=== PATIENT | male | born 1940 | race Caucasian/White ===

== ENCOUNTER 2017-05-28 09:20 | Inpatient (IN) | payer MEDICARE ==
[2017-05-28] VITALS (11 sets, daily range): BP systolic 101–194; BP diastolic 56–101; PULSE 78–101; RESP 15–22; TEMP 98.2–98.6; O2SAT 95–99
[~2017-05-28] VITALS: Ht 180.3 cm; Wt 65.0 kg
[~2017-05-28 09:20] MED LIST: ADVA250A INH; AFRI0.052 EACH NARE; ASPI81CH6 CHEW; CO Q100C9 PO; INSU1INJ18 SQ; ISOS60TA PO; LISI-515 PO; META0.52 PO; METF500T PO; NEBI20 PO; PLAV75TA29 PO; PROT40TA PO; ROSU5 PO; TRAD5TAB PO; TRIA37.5 PO; VITA100064 PO; [UNRECOGNIZED DRUG - SUPPLY] TD; [UNRECOGNIZED DRUG - SUPPLY] TD
[2017-05-28] MEDS ORDERED: MORPHINE SULFATE 2 MG/ML INJ IV PUSH ONE (09:45)
[2017-05-28] MEDS ORDERED: SODIUM CHLORIDE 0.9% FLUSH 10 ML FLUSH IVF PRN (09:45)
--- NOTE | 2017-05-28 09:52 | RADRPT ---
EXAM DATE/TIME: 05/28/2017 09:39 [place] COMPARISON: No previous studies available for comparison. INDICATIONS : Chest pain. MEDICAL HISTORY : Chronic obstructive pulmonary disease. SURGICAL HISTORY : stents in legs and left arm ENCOUNTER: Initial ACUITY: 2 days PAIN SCORE: 8/10 LOCATION: Bilateral chest FINDINGS: A single view of the chest demonstrates the lungs to be symmetrically aerated without evidence of mas s, infiltrate or effusion. The cardiomediastinal contours are unremarkable. Osseous structures are intact. The patient is status post median sternotomy for bypass grafting procedure. Mild atherosclero tic changes are present in the aorta. There are overlying electrocardiogram leads present. CONCLUSION: No acute disease. Ignacio Julien MD on May 28, 2017 at 9:47 Board Certified Radiologist. This report was verified electronically.
[2017-05-28 10:06] LABS: AUTOMATED NEUTROPHIL # 7.7 TH/MM3 (1.8-7.7); BASOPHIL # 0.1 TH/MM3 (0-0.2); BASOPHIL % 0.6 % (0.0-2.0); EOSINOPHIL # 0.3 TH/MM3 (0-0.4); EOSINOPHIL % 2.7 % (0.0-4.0); HEMATOCRIT 44.9 % (39.0-51.0); HEMOGLOBIN 16.2 GM/DL (13.0-17.0); LYMPHOCYTE # 3.1 TH/MM3 (1.0-4.8); MEAN CELL VOLUME 88.6 FL (80.0-100.0); MEAN CORPUSCULAR HEMOGLOBIN 31.9 PG (27.0-34.0); MEAN PLATELET VOLUME 7.5 FL (7.0-11.0); MONO % 6.7 % (0.0-8.0); MONOCYTE # 0.8 TH/MM3 (0-0.9); PLATELET COUNT 262 TH/MM3 (150-450); RED BLOOD COUNT 5.07 MIL/MM3 (4.50-5.90)
[2017-05-28 10:18] LABS: PROTHROMBIN TIME - PATIENT 10.3 SEC (9.8-11.6)
[2017-05-28 10:24] LABS: ALBUMIN 3.7 GM/DL (3.4-5.0); AST (GOT) 12 U/L (15-37); BICARBONATE 27.8 MEQ/L (21.0-32.0); BLOOD UREA NITROGEN 21 MG/DL (7-18); CALCIUM 9.4 MG/DL (8.5-10.1); CHLORIDE 102 MEQ/L (98-107); CREATININE 1.29 MG/DL (0.60-1.30); GLOMERULAR FILTRATION RATE 54 ML/MIN (>89); GLUCOSE,RANDOM 186 MG/DL (74-106); SODIUM (NA) 137 MEQ/L (136-145)
[2017-05-28 10:25] LABS: ALT (GPT) 16 U/L (12-78)
[2017-05-28 10:29] LABS: ALKALINE PHOSPHATASE 74 U/L (45-117); TOTAL BILIRUBIN ADULT 0.7 MG/DL (0.2-1.0); TOTAL PROTEIN 7.5 GM/DL (6.4-8.2); TROPONIN I 0.18 NG/ML (0.02-0.05)
[2017-05-28] MEDS ORDERED: HEPARIN-D5W 25,000 U/250 ML 250 ML IV PRN (10:45)
[2017-05-28] MEDS ORDERED: HEPARIN SODIUM - IV 10,000 UNITS/10 ML VIAL IV PUSH ONE (10:45)
--- NOTE | 2017-05-28 10:55 | PD ---
HPI Chief Complaint: Chest Pain Time Seen by Provider: 09:35 Travel History International Travel<30 days: No Contact w/Intl Traveler<30days: No Traveled to known affect area: No History of Present Illness HPI Patient is a 76-year-old male who comes in complaining of chest pain. He has a history of four-vessel CABG in 2010, and says he has not had any issues since then. He says that last night he started to have a little bit of discomfort in his chest, but today it got much worse. He says it feels like in 2010 when he required the CABG. He denies nausea or vomiting. He has experienced some shortness of breath. He says he took 325 mg of aspirin prior to coming in, and that seemed to help a little bit. He says he feels like if he was exerting himself that this would make his symptoms worse. He denies any leg swelling. He has not had cough or cold or fevers. PFSH Past Medical History Anemia: Yes Arthritis: Yes Asthma: Yes Autoimmune Disease: No Anxiety: No Depression: No Heart Rhythm Problems: No Cancer: No Cardiac Catheterization: Yes Cardiovascular Problems: Yes High Cholesterol: Yes Chest Pain: Yes Congestive Heart Failure: Yes COPD: Yes Coronary Artery Disease: Yes Diabetes: Yes Patient Takes Glucophage: Yes Diminished Hearing: No Endocrine: No Gastrointestinal Disorders: Yes GERD: Yes Genitourinary: No Hiatal Hernia: No Hypertension: Yes Immune Disorder: No Implanted Vascular Access Dvce: Yes Musculoskeletal: Yes (CHRONIC BACK PAIN) Neurologic: No Psychiatric: No Reproductive: No Respiratory: Yes Sleep Apnea: No Thyroid Disease: No Ulcer: No Past Surgical History Abdominal Surgery: Yes (UMBILICAL HERNIA) AICD: No Arteriovenous Shunt: No Body Medical Devices: GRAFT TO RIGHT GROIN Cardiac Surgery: Yes (RIGHT FEMPOP) Cholecystectomy: Yes () Coronary Artery Bypass Graft: Yes Ear Surgery: No Endocrine Surgery: No Eye Surgery: No Genitourinary Surgery: No Gynecologic Surgery: No Insulin Pump: No Joint Replacement: Yes (LEFT ARM PLATE) Neurologic Surgery: Yes (REMOVED DISC X 2 IN LOW BACK) Oral Surgery: No Pacemaker: No Thoracic Surgery: No Tonsillectomy: Yes Other Surgery: Yes Social History Alcohol Use: Yes (X 2 BEERS EVERY OTHER DAY) Tobacco Use: Yes (CIGARS OCCASSIONALLY) Substance Use: No Allergies-Medications (Allergen,Severity, Reaction): Coded Allergies: No Known Allergies (Verified Adverse Reaction, Unknown, 05/28/17) Reported Meds & Prescriptions Reported Meds & Active Scripts Active [BD Arnold Track] 100 U TD BID BD Arnold Track Test Strips Dx: Diabetes Mellitus type 2 - 250.00 [BD Arnold Track] 1 Unit TD Lancets - BD Arnold Track Dx: Diabetes Mellitus type 2 - 250.00 [BD Arnold Trac] 1 Unit TD BID Arnold Track Glucometer Dx: Diabetes Mellitus type 2 - 250.00 Reported Afrin Nasal [place] (Oxymetazoline HCl) 0.05% [place] 2-3 [place] EACH NARE Q12H PRN Metamucil (Psyllium) 520 Mg Cap 1 Cap PO DAILY Basaglar Kwikpen (Insulin Glargine) 100 Unit/Ml Pen 14 Units SQ DAILY Aspirin Low Dose (Aspirin) 81 Mg Chew 81 Mg CHEW DAILY Lisinopril 20 Mg Tab 20 Mg PO BID Metformin (Metformin HCl) 500 Mg Tab 500 Mg PO BIDPC Co Q 10 (Coenzyme Q10 (Ubidecarenone)) 100 Mg Cap 200 Mg PO DAILY Vitamin D3 (Cholecalciferol) 1,000 Unit Tab 1,000 Units PO DAILY Bystolic (Nebivolol) 20 Mg Tab 20 Mg PO DAILY Protonix (Pantoprazole Sodium) 40 Mg Tab 40 Mg PO BID Crestor (Rosuvastatin Calcium) 5 Mg Tab 5 Mg PO EVERY OTHER DAY Isosorbide Mononitrate ER (Isosorbide Mononitrate) 60 Mg Tab 60 Mg PO DAILY Tradjenta (Linagliptin) 5 Mg Tab 5 Mg PO DAILY Triamterene-Hydrochlorothiazide 37.5-25 Mg Tab 1 Tab PO DAILY Plavix (Clopidogrel Bisulfate) 75 Mg Tab 75 Mg PO DAILY Advair Diskus Inh (Fluticasone-Salmeterol Inh) 250-50 Mcg/Blist Aer 1 Puff INH BID Rinse mouth after use. Review of Systems Except as stated in HPI: all other systems reviewed are Neg General / Constitutional: No: Fever, Chills HENT: No: Headaches, Lightheadedness Cardiovascular: Positive: Chest Pain or Discomfort Respiratory: No: Shortness of Breath Gastrointestinal: No: Nausea, Vomiting Genitourinary: No: Dysuria Musculoskeletal: No: Myalgias, Edema Skin: No Rash, No Change in Pigmentation Neurologic: No: Weakness, Dizziness Physical Exam Narrative GENERAL: Awake and alert, in no acute distress. SKIN: Focused skin assessment warm/dry. No wounds or signs of infection. HEAD: Atraumatic. Normocephalic. EYES: Pupils equal and round. No scleral icterus. ENT: Mucous membranes pink and moist. NECK: Trachea midline. No JVD. CARDIOVASCULAR: Regular rate and rhythm. No murmur appreciated. RESPIRATORY: No accessory muscle use. Clear to auscultation. Breath sounds equal bilaterally. GASTROINTESTINAL: Abdomen soft, non-tender, nondistended. MUSCULOSKELETAL: No obvious deformities. No clubbing. No cyanosis. No edema. NEUROLOGICAL: Awake and alert. No obvious cranial nerve deficits. Motor grossly within normal limits. Normal speech. PSYCHIATRIC: Appropriate mood and affect; insight and judgment normal. Data Data Last Documented VS Vital Signs Date Time Temp Pulse Resp B/P (MAP) Pulse Ox O2 Delivery O2 Flow Rate FiO2 05/28/17 09:41 98 Room Air 05/28/17 09:41 149/96 (113) 05/28/17 09:25 98.2 89 15 Orders Orders B-Type Natriuretic Peptide (05/28/17 09:35) Ckmb (Isoenzyme) Profile (05/28/17 09:35) Complete Blood Count With Diff (05/28/17 09:35) Comprehensive Metabolic Panel (05/28/17 09:35) Prothrombin Time / Inr (Pt) (05/28/17 09:35) Act Partial Throm Time (Ptt) (05/28/17 09:35) Troponin I (05/28/17 09:35) Chest, Single Ap (05/28/17 09:35) Ecg Monitoring (05/28/17 09:35) Bilateral Bp Monitoring (05/28/17 09:35) Iv Access Insert/Monitor (05/28/17 09:35) Oximetry (05/28/17 09:35) Oxygen Administration (05/28/17 09:35) Sodium Chloride 0.9% Flush (Ns Flush) (05/28/17 09:45) Morphine Inj (Morphine Inj) (05/28/17 09:45) Electrocardiogram (05/28/17 ) Heparin Inj (Heparin Inj) (05/28/17 10:45) Heparin Inj (Heparin Inj) (05/28/17 16:45) Heparin Inj (Heparin Inj) (05/28/17 16:45) Heparin-D5w 25,000 U/250 Ml (Heparin-D5w (05/28/17 10:45) Cbc No Diff, Includes Plts (05/31/17 06:00) Act Partial Throm Time (Ptt) (05/28/17 17:35) Occult Blood (Hemoccult) Stool (05/28/17 10:35) Heparin Inj (Heparin Inj) (05/28/17 11:04) Admit Order (Ed Use Only) (05/28/17 ) Admit To Inpatient (05/28/17 ) Vital Signs (Adult) Q4H (05/28/17 11:07) Diet Npo (05/28/17 Lunch) Sodium Chloride 0.9% Flush (Ns Flush) (05/28/17 11:15) Sodium Chloride 0.9% Flush (Ns Flush) (05/28/17 11:15) Naloxone Inj (Narcan Inj) (05/28/17 11:15) Inpatient Certification (05/28/17 ) Labs Laboratory Tests Test 05/28/17 09:40 White Blood Count 12.0 TH/MM3 Red Blood Count 5.07 MIL/MM3 Hemoglobin 16.2 GM/DL Hematocrit 44.9 % Mean Corpuscular Volume 88.6 FL Mean Corpuscular Hemoglobin 31.9 PG Mean Corpuscular Hemoglobin Concent 36.0 % Red Cell Distribution Width 14.0 % Platelet Count 262 TH/MM3 Mean Platelet Volume 7.5 FL Neutrophils (%) (Auto) 64.0 % Lymphocytes (%) (Auto) 26.0 % Monocytes (%) (Auto) 6.7 % Eosinophils (%) (Auto) 2.7 % Basophils (%) (Auto) 0.6 % Neutrophils # (Auto) 7.7 TH/MM3 Lymphocytes # (Auto) 3.1 TH/MM3 Monocytes # (Auto) 0.8 TH/MM3 Eosinophils # (Auto) 0.3 TH/MM3 Basophils # (Auto) 0.1 TH/MM3 CBC Comment AUTO DIFF Differential Comment AUTO DIFF CONFIRMED Prothrombin Time 10.3 SEC Prothromb Time International Ratio 1.0 RATIO Activated Partial Thromboplast Time 28.9 SEC Blood Urea Nitrogen 21 MG/DL Creatinine 1.29 MG/DL Random Glucose 186 MG/DL Total Protein 7.5 GM/DL Albumin 3.7 GM/DL Calcium Level 9.4 MG/DL Alkaline Phosphatase 74 U/L Aspartate Amino Transf (AST/SGOT) 12 U/L Alanine Aminotransferase (ALT/SGPT) 16 U/L Total Bilirubin 0.7 MG/DL Sodium Level 137 MEQ/L Potassium Level 4.1 MEQ/L Chloride Level 102 MEQ/L Carbon Dioxide Level 27.8 MEQ/L Anion Gap 7 MEQ/L Estimat Glomerular Filtration Rate 54 ML/MIN Total Creatine Kinase 46 U/L Troponin I 0.18 NG/ML B-Type Natriuretic Peptide 71 PG/ML MDM Medical Decision Making Medical Screen Exam Complete: Yes Emergency Medical Condition: Yes Medical Record Reviewed: Yes Interpretation(s) ECG shows sinus tachycardia, right bundle branch block, left posterior fascicular block. No ST elevation or depression. Differential Diagnosis ACS versus an STEMI versus STEMI Narrative Course Patient is a 76-year-old male who comes in complaining of chest pain. Exam shows no acute abnormalities. IV established, labs sent. Patient connected to the secured entrance monitor. He is already taken aspirin. Labs show an elevated troponin to 0.18. He was started on heparin. Chest x-ray shows no acute abnormalities. Last 24 hours Impressions Chest X-Ray 05/28/17 0935 Signed Impressions: Service Date/Time: Sunday, May 28, 2017 09:39 - CONCLUSION: No acute disease. Ignacio Julien MD Patient admitted for further management. Diagnosis Primary Impression: NSTEMI (non-ST elevated myocardial infarction) Admitting Information Admitting Physician Requests: Admit Halima Gilbert MD May 28, 2017 10:55
[2017-05-28] MEDS ORDERED: HEPARIN - 10,000 UNITS/ML IV ADDITIVE IV PUSH STA (11:04)
[2017-05-28] MEDS: SODIUM CHLORIDE 0.9% FLUSH 10 ML FLUSH IV FLUSH SCH ×2 (11:15→21:48)
[2017-05-28] MEDS ORDERED: NALOXONE HCL 0.4 MG/ML AMP IV PUSH PRN (11:15)
[2017-05-28] MEDS ORDERED: SODIUM CHLORIDE 0.9% FLUSH 10 ML FLUSH IV FLUSH PRN (11:15)
--- NOTE | 2017-05-28 12:31 | HHI.HP ---
HPI Service Family Medicine Primary Care Physician No Primary Care Physician Admission Diagnosis NSTEMI Diagnoses: International Travel<30 Days: No Contact w/Intl Traveler<30days: No Known Affected Area: No History of Present Illness Mr. Blunt is a 76 y/o male presenting to the ED with chest pain. He states that when he got up on Sunday morning he started feeling substernal chest pain. The pain slowly increased throughout the day without exertion. This morning the pain was up to 8/10 which is when he decided to come to the ED. He describes the pain as a "pressure" that does not radiate up his neck or down his L arm. He had mild shortness of breath, but was able to exert himself without worsening symptoms. He denies any vision changes, diaphoresis, nausea, or vomiting. 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 He had heart catheterization in 2016 without further intervention per his report. He has had 4 vessel CABG in 2010. Currently he states his symptoms have resolved and is without complaints. Of note he was diagnosed with flu and taken two doses of Tamiflu before self discontinuing the medication due to "feeling bad." He reports his flu symptoms had resolved prior to this episode. (Toan Black MD R2) Review of Systems Constitutional: DENIES: Fever, Dizziness Eyes: DENIES: Blurred vision, Diplopia Ears, nose, mouth, throat: DENIES: Hoarseness, Running Nose Respiratory: COMPLAINS OF: Shortness of breath, DENIES: Cough Cardiovascular: COMPLAINS OF: Chest pain, DENIES: Lower Extremity Edema Gastrointestinal: DENIES: Abdominal pain, Diarrhea, Nausea, Vomiting Genitourinary: DENIES: Dysuria Musculoskeletal: DENIES: Joint pain, Back pain Integumentary: DENIES: Rash Hematologic/lymphatic: DENIES: Lymphadenopathy Immunologic/allergic: DENIES: Urticaria Neurologic: DENIES: Headache Psychiatric: DENIES: Mood changes (Toan Black MD R2) Past Family Social History Past Medical History COPD Hypertension Diabetes Mellitus, type II CAD s/p 4 vessel CABG 07/2010 Hyperlipidemia Peripheral Vascular Disease Chronic sinusitis Chronic allergic rhinitis Esophageal ulcers CKD stage 2 Preventive: Colonoscopy - 2010- benign polyps (scheduled in 08/2012 for repeat) Endoscopy - 2010 - reflux Pneumovax (2010) Other Physicians/Providers Involved in the Care of Patient: Jaun Sabillon (pcp) [phone] Andrea Thompson (vascular) [phone] Zaki White (cardiology) [phone] Julio Evangelista (pulmonary) [phone] Jase Negro (ophtho) [phone] Past Surgical History Deviated Septum surgery CABG x4 vessels 07/2010 Stent placement in bilateral legs 02/2012 Lower back surgery x2 - L3-L5 partial discectomy 1985 Shoulder surgery (rotator cuff) Left arm ORIF Bilateral Cataract removal L subclavian artery sent 2017 Meniscus surgery (Toan Black MD R2) Allergies: Coded Allergies: No Known Allergies (Verified Adverse Reaction, Unknown, 05/28/17) Family History Father - Unknown Mother - TB Siblings: Children: Social History Marrital Status: Living Situation: Lives in [place], [place] 8 months of year, lives in [place] 4 months 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 SKIN: No rashes, ecchymoses or lesions. Cool and dry. HEAD: Atraumatic. Normocephalic. No temporal or scalp tenderness. EYES: Pupils equal round and reactive. Extraocular motions intact. No scleral icterus. No injection or drainage. ENT: Nose without bleeding, purulent drainage or septal hematoma. Throat without erythema, tonsillar hypertrophy or exudate. Uvula midline. Airway patent. NECK: Trachea midline. No JVD or lymphadenopathy. Supple, nontender, no meningeal signs. CARDIOVASCULAR: Regular rate and rhythm without murmurs, gallops, or rubs. RESPIRATORY: Clear to auscultation. Breath sounds equal bilaterally. No wheezes , rales, or rhonchi. GASTROINTESTINAL: Abdomen soft, non-tender, nondistended. No hepato-splenomegaly , or palpable masses. No guarding. MUSCULOSKELETAL: Extremities without clubbing, cyanosis, or edema. No joint tenderness, effusion, or edema noted. No calf tenderness. Negative Homans sign bilaterally. NEUROLOGICAL: Awake and alert. Cranial nerves II through XII intact. Motor and sensory grossly within normal limits. Five out of 5 muscle strength in all muscle groups. Normal speech. Laboratory Laboratory Tests Test 05/28/17 09:40 White Blood Count 12.0 Red Blood Count 5.07 Hemoglobin 16.2 Hematocrit 44.9 Mean Corpuscular Volume 88.6 Mean Corpuscular Hemoglobin 31.9 Mean Corpuscular Hemoglobin Concent 36.0 Red Cell Distribution Width 14.0 Platelet Count 262 Mean Platelet Volume 7.5 Neutrophils (%) (Auto) 64.0 Lymphocytes (%) (Auto) 26.0 Monocytes (%) (Auto) 6.7 Eosinophils (%) (Auto) 2.7 Basophils (%) (Auto) 0.6 Neutrophils # (Auto) 7.7 Lymphocytes # (Auto) 3.1 Monocytes # (Auto) 0.8 Eosinophils # (Auto) 0.3 Basophils # (Auto) 0.1 CBC Comment AUTO DIFF Differential Comment AUTO DIFF CONFIRMED Prothrombin Time 10.3 Prothromb Time International Ratio 1.0 Activated Partial Thromboplast Time 28.9 Blood Urea Nitrogen 21 Creatinine 1.29 Random Glucose 186 Total Protein 7.5 Albumin 3.7 Calcium Level 9.4 Alkaline Phosphatase 74 Aspartate Amino Transf (AST/SGOT) 12 Alanine Aminotransferase (ALT/SGPT) 16 Total Bilirubin 0.7 Sodium Level 137 Potassium Level 4.1 Chloride Level 102 Carbon Dioxide Level 27.8 Anion Gap 7 Estimat Glomerular Filtration Rate 54 Total Creatine Kinase 46 Troponin I 0.18 B-Type Natriuretic Peptide 71 (Toan Black MD R2) Result Diagram: 05/28/17 0940 05/28/17 0940 Imaging Last 72 hours Impressions Chest X-Ray 05/28/17 0935 Signed Impressions: Service Date/Time: Sunday, May 28, 2017 09:39 - CONCLUSION: No acute disease. Ignacio Julien MD (Toan Black MD R2) Caprini VTE Risk Assessment Caprini VTE Risk Assessment: Mod/High Risk (score >= 2) Caprini Risk Assessment Model Point Value = 1 Point Value = 2 Point Value = 3 Point Value = 5 Age 41-60 Minor surgery BMI > 25 kg/m2 Swollen legs Varicose veins or History of unexplained or recurrent spontaneous Oral contraceptives or hormone replacement Sepsis (< 1 month) Serious lung disease, including pneumonia (< 1 month) Abnormal pulmonary function Acute myocardial infarction Congestive heart failure (< 1 month) History of inflammatory bowel disease Medical patient at bed rest Age 61-74 Arthroscopic surgery Major open surgery (> 45 min) Laparoscopic surgery (> 45 min) Malignancy Confined to bed (> 72 hours) Immobilizing plaster cast Central venous access Age >= 75 History of VTE Family history of VTE Factor V Leiden Prothrombin [id number] Lupus anticoagulant Anticardiolipin antibodies Elevated serum homocysteine Heparin-induced thrombocytopenia Other congenital or acquired thrombophilia Stroke (< 1 month) Elective arthroplasty Hip, pelvis, or leg fracture Acute spinal cord injury (< 1 month) Prophylaxis Regimen Total Risk Factor Score Risk Level Prophylaxis Regimen 0-1 Low Early ambulation 2 Moderate Order ONE of the following: *Sequential Compression Device (SCD) *Heparin 5000 units SQ BID 3-4 Higher Order ONE of the following medications: *Heparin 5000 units SQ TID *Enoxaparin/Lovenox 40 mg SQ daily (WT < 150 kg, CrCl > 30 mL/min) *Enoxaparin/Lovenox 30 mg SQ daily (WT < 150 kg, CrCl > 10-29 mL/min) *Enoxaparin/Lovenox 30 mg SQ BID (WT < 150 kg, CrCl > 30 mL/min) AND/OR *Sequential Compression Device (SCD) 5 or more Highest Order ONE of the following medications: *Heparin 5000 units SQ TID (Preferred with Epidurals) *Enoxaparin/Lovenox 40 mg SQ daily (WT < 150 kg, CrCl > 30 mL/min) *Enoxaparin/Lovenox 30 mg SQ daily (WT < 150 kg, CrCl > 10-29 mL/min) *Enoxaparin/Lovenox 30 mg SQ BID (WT < 150 kg, CrCl > 30 mL/min) AND *Sequential Compression Device (SCD) (Toan Black MD R2) Assessment and Plan Assessment and Plan Mr. Blunt is a 76 y/o male presenting to the ED with chest pain admitted for ACS rule out. Code Status FULL CODE Discussed Condition With Dr. Gilbert, ER MD Dr. Hancock (Toan Black MD R2) Attending Attestation THIS CASE WAS DISCUSSED WITH THE RESIDENT PHYSICIANS. I HAVE REVIEWED THE RECORD AND AGREE WITH THE ABOVE NOTE AND PLAN OF CARE WAS DISCUSSED. I HAVE AUTHORIZED THE ORDER FOR ADMISSION TO AN IN-PATIENT STATUS. (Sánchez Fletcher MD) Problem List: (1) Chest pain ICD Codes: R07.9 - Chest pain, unspecified Status: Acute Plan: -DDx includes ACS, GERD, PE, pneumonia, panic attack, myocarditis, costochondritis. -CAD risk factors include smoking hx, Hx of NM, HTN, HLD, DM. -Pt. states CP has resolved with nitro and morphine. -Previous ECHO completed in [place], normal per patient. Previous EKG on 08/08 showed normal sinus rhythm with right bundle branch block. -EKG showed normal sinus rhythm with a heart rate of [address] depression in leads V4-6. Right bundle solitario block. Inverted T waves in leads aVR, V1. -CXR showed no acute disease -Initial Trop 0.18. Trend Lucia and EKGs x 2. If 2nd trop. is sig. increased, consult cardiology. -Heparin drip initiated in ER, orders placed -Supplemental O2. Daily aspirin. Protonix. -Morphine 2mg Q2 hrs PRN chest pain only. -Continue home Bystolic, Plavix, lisinopril, doses will provide mononitrate, aspirin, and Crestor -NTG PRN as no evidence of pump failure/hypoperfusion at this time. -Tele. -NPO for now in case of PCI. -AM BMP + Mg to detect/correct electrolyte abnormalities that could lower arrhythmia threshold. -Cardiology consulted, appreciate recommendations (2) Diabetes mellitus with peripheral angiopathy ICD Codes: E11.51 - Type 2 diabetes mellitus with diabetic peripheral angiopathy without gangrene Status: Chronic Plan: Patient with reported history of type 2 diabetes. Currently on home metformin, tradjenta, and Basaglar insulin. -Hold home diabetes medication -Sliding-scale insulin per protocol -A1c ordered (3) COPD (chronic obstructive pulmonary disease) ICD Codes: J44.9 - Chronic obstructive pulmonary disease Status: Chronic Plan: Patient was reported COPD without current exacerbation -Continue home albuterol when necessary for shortness of breath -Continue Advair daily -DuoNeb's ordered as needed for shortness of breath -Incentive spirometry (4) Hypertension ICD Codes: I10 - Hypertension Status: Chronic Plan: Patient with chronic hypertension -Continue home lisinopril, triamterene/HCTZ -Clonidine 0.1 mg every 6 hours when necessary for blood pressure greater than 180/100 (5) Constipation ICD Codes: K59.00 - Constipation Status: Chronic Plan: Patient with history of chronic constipation -Continue home Metamucil -Constipation protocol in place (6) GERD (gastroesophageal reflux disease) ICD Codes: K21.9 - Gastroesophageal reflux disease Status: Chronic Plan: Patient with history of gastroesophageal reflux disease -Continue home Protonix twice a day (7) Nutrition, metabolism, and development symptoms ICD Codes: R63.8 - Other symptoms and signs concerning food and fluid intake Status: Acute Plan: -Fluids: Patient appears hydrated. He is receiving fluid with heparin drip -Diet: Nothing by mouth for possible procedure -Electrolytes: Within normal limits, continue to monitor -Prophylaxis: Zofran when necessary for nausea/vomiting, clonidine when necessary for elevated blood pressure, constipation protocol and place, DuoNeb when necessary for shortness of breath (8) No contraindication to deep vein thrombosis (DVT) prophylaxis ICD Codes: Z78.9 - Other specified health status Status: Acute Plan: -Heparin drip per protocol for ACS -SCDs (Toan Black MD R2) Physician Certification 2 Midnight Certification Type: Admission for Inpatient Services Order for Inpatient Services The services are ordered in accordance with Medicare regulations or non- Medicare payer requirements, as applicable. In the case of services not specified as inpatient-only, they are appropriately provided as inpatient services in accordance with the 2-midnight benchmark. Estimated LOS (days): 3 3 days is the estimated time the patient will need to remain in the hospital, assuming treatment plan goals are met and no additional complications. Post-Hospital Plan: Home (Toan Black MD R2) Problem Qualifiers (1) Chest pain: Qualified Codes: I20.0 - Unstable angina (2) COPD (chronic obstructive pulmonary disease): Qualified Codes: J41.0 - Simple chronic bronchitis (3) Hypertension: Qualified Codes: I10 - Essential (primary) hypertension (4) Constipation: Qualified Codes: K59.00 - Constipation, unspecified (5) GERD (gastroesophageal reflux disease): Qualified Codes: K21.9 - Gastro-esophageal reflux disease without esophagitis Toan Black MD R2 May 28, 2017 12:30 Sánchez Fletcher MD May 28, 2017 20:35
[2017-05-28] MEDS ORDERED: GLUCAGON 1 MG/ML VIAL OTHER PRN (13:00)
[2017-05-28] MEDS ORDERED: MAGNESIUM HYDROXIDE SUSP 30 ML CUP PO PRN (13:00)
[2017-05-28] MEDS ORDERED: cloNIDine HCL 0.1 MG TAB PO PRN (13:00)
[2017-05-28] MEDS: DOCUSATE SODIUM 50 MG/SENNA 8.6 MG TAB PO SCH ×2 (13:00→21:48)
[2017-05-28] MEDS ORDERED: BISACODYL 10 MG SUPP RECTAL PRN (13:00)
[2017-05-28] MEDS ORDERED: SENNOSIDES 8.6 MG TAB PO PRN (13:00)
[2017-05-28] MEDS ORDERED: ACETAMINOPHEN 325 MG TAB PO PRN (13:00)
[2017-05-28] MEDS ORDERED: DEXTROSE 50% IN WATER 50 ML VIAL(D50) IV PUSH PRN (13:00)
[2017-05-28] MEDS ORDERED: ONDANSETRON HCL 4 MG/2 ML VIAL IVP PRN (13:00)
[2017-05-28] MEDS ORDERED: RESP: ALBUTEROL 2.5 MG/IPRATROPIUM 0.5 MG NEB (PRN) NEB (13:00)
[2017-05-28] MEDS ORDERED: LACTULOSE SYRUP 20 GM/30 ML CUP PO PRN (13:00)
[2017-05-28] MEDS ORDERED: NITROGLYCERIN 0.4 MG SL 25 TABS/BTL SL PRN (13:30)
[2017-05-28] MEDS ORDERED: MORPHINE SULFATE 2 MG/ML INJ IV PUSH PRN (13:30)
[2017-05-28] MEDS ORDERED: HEPARIN SODIUM - IV 10,000 UNITS/10 ML VIAL IV PUSH PRN ×2 (16:45)
[2017-05-28] MEDS ORDERED: MIDAZOLAM HCL 5 MG/5 ML VIAL ONE (16:56)
[2017-05-28] MEDS ORDERED: HEPARIN-NS/PF INJ 500 ML ONE ×2 (16:56→17:58)
[2017-05-28] MEDS ORDERED: IOHEXOL 350 MG/ML 100 ML BTL (for Cath Lab) OTHER ONE (17:04)
[2017-05-28] MEDS ORDERED: HEPARIN SODIUM - IV 10,000 UNITS/10 ML VIAL ONE (17:58)
[2017-05-28] MEDS ORDERED: SODIUM NITROPRUSSIDE 50 MG/2 ML VIAL ONE (18:19)
[2017-05-28] MEDS ORDERED: CLOPIDOGREL 300 MG TAB ONE (18:26)
[2017-05-28] MEDS ORDERED: SODIUM CHLOR 0.9% 1000 ML INJ 1,000 ML IV SCH (18:44)
[2017-05-28] MEDS ORDERED: MISC INFORMATION XX ONE (18:45)
[2017-05-28] MEDS ORDERED: TEMAZEPAM 15 MG CAP PO PRN (18:45)
--- NOTE | 2017-05-28 19:10 | CATHPROC ---
[facility] HIS Report Study Information Study Number Admission Scheduled Start Study Start [id number] May 28 2017 11:08AM 05/28/2017 May 28 2017 4:39PM [place] [facility] Cardiac Catheterization Admit Source Facility Department Emergency department [facility] - Sales And Marketing Intern Physician and Clinical Staff Initial Allison Stern Data Deliverables Manager Jossue RN, Arik RecordLisandra Esquivel,SAAD TECH2 Scrub Susanne Kee,RT(R) (BS) Procedures Performed Procedure Location (Site) Vessel Name Angiogram LV LV Ventricle Coronary Angiograms LCA Left Coronary Coronary Angiograms RCA Right Coronary Coronary Angiograms TERRAZAS-LAD Left Coronary Coronary Angiograms SVG-OM 1 CIRC Drug Eluting Inflatio SVG-OM CIRC Wire insertion Fem Art (right) Femoral Art Equipment Time Fruit Harvester Description Size Mfg Part Number Used/Scraped TRANSDUCER, TRPresdoRITU [id number] 16:41 [email or web address] * Used W/STOCKCOCK *[id number] *[id number] [id number] *[id number] [id number] *[id number] [id number] *[id number] *[id number] 16:41 [employer] INDUSTRIES PACK, CCL CUSTOM * Used *[id number] 16:41 [employer] PACER PEN, SKIN DUAL W/ RULER * Used *[id number] PIG ANG 145 DXTERITY 17:43 [employer] RR5 [id number] Used CATHETER [id number] 18:14 [employer] STENT, 3.0 30MM AVILA 3.0 30MM Used *[id number] 18:17 [employer] MEDICAL 30 JENNIFER INDEFLATOR Used *[id number] 18:09 Meican SHEATH, FR6.5 PRELUDE 11CM FR 6.5 038ACT Used *[id number] 16:41 [employer] MEDICAL WIRE, 3MMJ .035 180CM 180CM Used *[id number] 17:53 [employer] MEDICAL WIRE, EXCHANGE 260CM 3MMJ 260CM Used *[id number] PROBE COVER, STERILE [id number] 16:41 [email or web address] * Used ULTRASOUND W/ GEL *[id number] 16:41 NAMIC MANIFOLD, 4 PORT * Used *[id number] 16:41 NAMIC TUBING, HIGH PRESSURE 48" 48" Used *[id number] 16:41 [employer] OMNIPAQUE, 350 MG, 150ML 150ML [id number] Used 17:44 NYCOMED OMNIPAQUE, 350 MG, 50ML 50ML [id number] Used [id number] 16:41 [employer] MEDICAL BLANKET,WARM AIR CCL * Used *[id number] [id number] 16:41 TERUMO MEDICAL SHEATH, FR5 TERUMO (10CM) FR 5 Used *[id number] Equipment Model, Serial, Lot Number and Expiration Data Description Model Number Serial Number Lot Number Expiration Date STENT, 3.0 30MM AVILA [id number] 12-09-2018 History: Current Medications Medication Dosage/Unit Route Frequency Last Date/Time Taken ASA LISINOPRIL Insulin Glucophage VITAMIN D Beta Fabricio CRESTOR Imdur HCTZ PLAVIX History: Allergies Allergy Reaction No Known Allergies History: Risk Factors Family History of Hypertension Dyslipidemia Previous MA Previous Heart Failure Premature CAD Yes Yes Yes No Yes Prior Valve Prior PCI Prior CABG Prior CABGDate Surgery No No Yes 07/29/2010 Cerebrovascular Peripheral Artery Chronic Lung On Dialysis Diabetes Diabetes Therapy Disease Disease Disease No No Yes Yes Yes Insulin History: Symptoms/Diagnosis Selection Items Chest pain SOB History: CV Disease Selection Items Known CAD History: Stress Tests Stress or Imaging Studies Performed No History: Other Current Smoker Method Quit Packs a Day Years Used Pack Years No Cigarettes 20 Years Ago 1 20 20 Labs Hgb (g/dl) Hct (%) WBC (l/cumm) Platelets (thousands) 11.60-17.00 35.00-51.00 4.00-11.00 150.00-450.00 16.2 44.9 12 262 Glucose (mg/dl) BUN (mg/dl) Creatinine (mg/dl) BUN:Creatinine (1:x) 74.00-106.00 7.00-18.00 0.50-1.30 10.00-20.00 186 21 1.2 17.5 Na (meq/l) K (meq/l) 136.00-145.00 3.50-5.10 137 4.1 PT (sec) PTT (sec) INR (PTT:PT) 9.80-11.60 24.30-30.10 0.90-1.10 10.3 28.9 1 Troponin I (ng/ml) CPK (u/l) CPK-MB (ng/ML) 0.02-0.05 26.00-308.00 0.50-3.60 0.18 46 Not Drawn Medication Medication Total Dose (Bolus/Oral) Medication Total Dosage/Unit 1% XYLOCAINE 20 mL FENTANYL 75 mcg HEPARIN 5000 units NTG (IC) 200 mcg PLAVIX 300 mg VERSED 2 mg Medications (Bolus/Oral) Medication Time Given Dosage/Unit Administered By Reason VERSED 05/28/2017 5:35:15 PM 2 mg Arik Marcum RN 2 mg VERSED given in lab by Arik Marucm RN in Left Antecubital via Peripheral IV. Ordered by Allison Chavarria. FENTANYL 05/28/2017 5:35:55 PM 50 mcg Arik Marcum RN 50 mcg FENTANYL given in lab by Arik Marcum RN in Left Antecubital via Peripheral IV. Ordered by Allison Falcon. 1% XYLOCAINE 05/28/2017 5:39:18 PM 20 mL Allison Chavarria 20 mL 1% XYLOCAINE given in lab by Allison Chavarria in Right Groin via Subcutaneous. Ordered by Allison Lee. HEPARIN 05/28/2017 6:07:43 PM 5000 units Allison Chavarria 5000 units HEPARIN given in lab by Allison Chavarria in Left Antecubital via Peripheral IV. Ordered by Allison Chavarria. FENTANYL 05/28/2017 6:08:43 PM 25 mcg Arik Marcum RN 25 mcg FENTANYL given in lab by Arik Marcum RN in Left Antecubital via Peripheral IV. Ordered by Allison Falcon. NTG (IC) 05/28/2017 6:19:15 PM 200 mcg Allison Chavarria 200 mcg NTG (IC) given in lab by Allison Chavarria via Intra-coronary. Ordered by Allison Chavarria. PLAVIX 05/28/2017 6:29:30 PM 300 mg Arik Marcum RN 300 mg PLAVIX given in lab by Arik Marcum RN via Oral. Ordered by Allison Chavarria. Medication (Drip) Medication Time Given Dosage/Unit Concentration/Unit Diluent (ml) Solution IV Solutions 05/28/2017 5:05:53 PM 0 mL (IV) 500 NaCl .9 Patient arrived on IV Solutions via Peripheral IV. Pump/Drip Flow = 20 ml/hr using NaCl .9. NIPRIDE 05/28/2017 6:22:56 PM 50 mcg 50 mcg NIPRIDE given in lab by Allison Chavarria via Intra-coronary to SVG/OM. Ordered by Vikas Chavarria NIPRIDE 05/28/2017 6:24:10 PM 50 mcg 50 mcg NIPRIDE given in lab by Allison Chavarria via Intra-coronary to SVG/RCA. Ordered by Yee Chavarria. Initial Case Assessment Cardiovascular HR Rhythm NIBP Chest Pain 81 sr 180/100 0 Circulatory - Right Pulses Dorsalis Pedis Femoral 2 2 Scale (0,1,2,3,4,d) Circulatory - Left Pulses Dorsalis Pedis Femoral 2 2 Scale (0,1,2,3,4,d) Neurological State Oriented to time-place- Alert Moves all extremities person Respiration - General Respiration Rate SpO2 (%) (B/min) 16 96 Final Case Assessment Cardiovascular HR Rhythm NIBP Chest Pain 81 sr 168/82 0 Circulatory - Right Pulses Dorsalis Pedis Femoral 2 2 Scale (0,1,2,3,4,d) Circulatory - Left Pulses Dorsalis Pedis Femoral 2 2 Scale (0,1,2,3,4,d) Neurological State Oriented to time-place- Alert Moves all extremities person Respiration - General Respiration Rate SpO2 (%) O2 (lpm) (B/min) 16 96 2 Chronological Log Time Study Chronological Log 17:02:54 Patient arrived via Bed. 17:02:56 Patient Name, D.O.B, / Armband Verified By R.N. 17:05:38 Consent signed by the physician and the patient and verified by the Sales And Marketing Intern staff. 17:05:40 Pre-op and post- op instructions given; patient acknowledges understanding of instructions. 17:05:41 Verbal Stimulation=2 Physical Stimulation=2 Airway=2 Respiration=2 TOTAL=8. (0=absent, 1=li mited, 2=present) 17:05:47 Patient has been NPO for More than 6Hrs. 17:05:48 Skin Breakdown-none 17:05:50 Raphael Prominences Protected 17:05:52 A # 20 IV was noted in the Antecubital (left). Grade = patent 17:05:53 Patient arrived on IV Solutions via Peripheral IV. Pump/Drip Flow = 20 ml/hr using NaCl .9. 17:05:55 History and physical on the chart or being dictated. Assessment: Initial Case, HR=81 BPM, Rhythm=sr, JLUR=134/100 mmhg, Chest Pain=0 Right Pulses: Дмитрий Ped=2, Femoral=2 17:05:56 Left Pulses: Дмитрий Ped=2, Femoral=2 Neurological: State=Alert, Ox3, HESS Respiration: Resp=16 B/min, SpO2=96 % Vitals capture started with the following parameters, Patient=Adult, Interval=5 min, Initial Pr ycubwh=508 mmHg, 17:12:15 Deflation Rate=5 mmHg, Cuff placed on Left Arm 17:13:35 HR=87 bpm, SAOT=326/102 mmhg, SpO2=98.0 %, Resp=18 B/min, Pain=0, Guerra=2 17:17:55 HR=84 bpm, SHRK=028/100 mmhg, SpO2=97.0 %, Resp=15 B/min, Clay=10 17:17:59 Reference ECG taken 17:18:10 Bilateral groins prepped with 2% chlorhexidine, and draped after a 3 minute waiting time. 17:22:58 HR=79 bpm, LKBR=689/92 mmhg, SpO2=96.0 %, Resp=14 B/min 17:23:29 MD paged 17:24:02 Pressure channel 1 zeroed. 17:27:59 HR=85 bpm, ZIMP=005/97 mmhg, SpO2=95.0 %, Resp=14 B/min 17:32:56 HR=81 bpm, HUSF=991/91 mmhg, SpO2=94.0 %, Resp=13 B/min 17:33:51 MD arrived. 17:35:15 2 mg VERSED given in lab by Arik Marcum RN in Left Antecubital via Peripheral IV. Ordered by Allison Chavarria. 17:35:55 50 mcg FENTANYL given in lab by Arik Marcum RN in Left Antecubital via Peripheral IV. Orde red by Allison Chavarria. 17:37:57 HR=84 bpm, GXTU=128/79 mmhg, SpO2=92 %, Resp=16 B/min Time Out. Correct patient, correct procedure, correct physician, power injector loaded with con trast with surgical team 17:38:51 present. Time Out Concurred by MD and individual staff in procedure. 17:39:17 Case Start 17:39:18 20 mL 1% XYLOCAINE given in lab by Allison Chavarria in Right Groin via Subcutaneous. Ordered by Allison Chavarria. 17:41:58 Access site was Right Femoral Artery. 17:42:11 A SHEATH, FR5 TERUMO (10CM) FR 5 was advanced into the Fem Art (right) using the Percutaneo us technique. 17:42:52 HR=80 bpm, TTYA=595/73 mmhg, SpO2=96.0 %, Resp=6 B/min A PIG ANG 145 DXTERITY CATHETER RR5 was advanced over a wire. OMNIPAQUE, 350 MG, 50ML 50ML was used for 17:43:17 injections. Recorded Pressure: LV, HR=84, Condition=Condition 1 17:44:00 (Left Ventricle) LV 127/1/3 17:45:03 The LV was injected at 10 cc/sec for a total of 30. OMNIPAQUE, 350 MG, 50ML 50ML used. Recorded Pressure: LV, Ao, HR=81, Condition=Condition 1 17:45:49 (Left Ventricle) LV 113/0/1, (Aorta) Ao 116/51/77 After removing the current catheter a JL 4.0 INFINITI CATHETER FR 5 was advanced over a WIRE, 3 MMJ .035 180CM 17:46:21 180CM. 17:47:51 HR=78 bpm, TZIY=801/74 mmhg, SpO2=98.0 %, Resp=12 B/min 17:48:55 The LCA was injected and visualized at various angles. OMNIPAQUE, 350 MG, 150ML 150ML used . After removing the current catheter a AR MOD INFINITI CATHETER FR 5 was advanced over a WIRE, 3 MMJ .035 180CM 17:51:56 180CM. 17:52:06 Activated Clotting Time Drawn 17:52:52 HR=76 bpm, PBJW=409/66 mmhg, SpO2=97.0 %, Resp=14 B/min 17:53:06 The previous wire was exchanged for a WIRE, EXCHANGE 260CM 3MMJ 260CM. 17:53:42 ACT (Normal Range 90-180) = 138 After removing the current catheter a BARNEY INFINITI CATHETER FR 5 was advanced over a WIRE, EXCH SIRISHA 260CM 17:53:55 3MMJ 260CM. 17:57:15 The TERRAZAS-LAD was injected and visualized at various angles. OMNIPAQUE, 350 MG, 150ML 150ML used. 17:57:40 The SVG-OM 1 was injected and visualized at various angles. OMNIPAQUE, 350 MG, 150ML 150ML used. 17:58:30 HR=77 bpm, QVXU=009/59 mmhg, SpO2=98.0 %, Resp=14 B/min After removing the current catheter a AR MOD INFINITI CATHETER FR 5 was advanced over a WIRE, E XCHANGE 260CM 18:00:29 3MMJ 260CM. 18:02:52 HR=73 bpm, RWFK=909/64 mmhg, SpO2=98.0 %, Resp=14 B/min 18:03:53 The RCA was injected and visualized at various angles. OMNIPAQUE, 350 MG, 150ML 150ML used . 18:07:43 5000 units HEPARIN given in lab by Allison Chavarria in Left Antecubital via Peripheral IV. O rdered by Allison Chavarria. 18:07:53 HR=78 bpm, BJWG=005/67 mmhg, TqJ1=941.0 %, Resp=13 B/min 18:08:38 Catheter was removed 18:08:43 25 mcg FENTANYL given in lab by Arik Marcum RN in Left Antecubital via Peripheral IV. Orde red by Allison Chavarria. A SHEATH, FR6.5 PRELUDE 11CM FR 6.5 was exchanged in the Fem Art (right). This was necessary in order to 18:09:02 accomodate a larger catheter. 18:09:31 A AR 1 GUIDE CATHETER FR 6 was advanced over a wire. OMNIPAQUE, 350 MG, 150ML 150ML was use d for injections. 18:11:57 A WIRE, ATW MARKER 195CM 195CM was inserted via Fem Art (right). 18:12:56 HR=76 bpm, IAST=925/66 mmhg, SpO2=99.0 %, Resp=13 B/min A STENT, 3.0 30MM AVILA 3.0 30MM was advanced through a AR 1 GUIDE CATHETER FR 6 over a WIRE, AT W MARKER 18:14:14 195CM 195CM. A STENT, 3.0 30MM AVILA 3.0 30MM was deployed using a 30 JENNIFER INDEFLATOR at 18 atmospheres for 55 seconds in 18:16:27 the SVG-OM. 18:17:34 Re-inflated the stent balloon in the SVG-OM to 21 JENNIFER for 25 seconds. 18:17:53 HR=77 bpm, TSXC=631/71 mmhg, SpO2=99.0 %, Resp=13 B/min 18:18:26 Delivery device removed 18:19:15 200 mcg NTG (IC) given in lab by Allison Chavarria via Intra-coronary. Ordered by Ronny Chavarria. 18:22:05 Activated Clotting Time Drawn 18:22:56 50 mcg NIPRIDE given in lab by Allison Chavarria via Intra-coronary to SVG/OM. Ordered by Allison Falcon. 18:23:31 HR=70 bpm, NRZH=137/57 mmhg, SpO2=97.0 %, Resp=11 B/min 18:24:10 50 mcg NIPRIDE given in lab by Allison Chavarria via Intra-coronary to SVG/RCA. Ordered by Allison Morris. 18:26:03 Guide Catheter and wire were removed 18:26:54 Case End 18:27:02 In the Fem Art (right) the SHEATH, FR6.5 PRELUDE 11CM FR 6.[address] by Susanne Hsieh RT(R) (BS). 18:27:15 Sterile dressing applied to site 18:27:16 No case complications noted. 18:27:17 Cine recording checked. 18:27:55 HR=77 bpm, ESNJ=236/87 mmhg, SpO2=97.0 %, Resp=13 B/min, Clay=10 18:29:30 300 mg PLAVIX given in lab by Arik Marcum RN via Oral. Ordered by Allison Chavarria. 18:29:55 ACT (Normal Range 90-180) = 335 18:32:54 HR=76 bpm, RRGB=732/91 mmhg, SpO2=96.0 %, Resp=20 B/min 18:38:02 HR=81 bpm, LEZN=077/82 mmhg, SpO2=96.0 %, Resp=16 B/min Assessment: Final Case, HR=81 BPM, Rhythm=sr, QQTV=678/82 mmhg, Chest Pain=0 Right Pulses: Дмитрий Ped=2, Femoral=2 18:43:22 Left Pulses: Дмитрий Ped=2, Femoral=2 Neurological: State=Alert, Ox3, HESS Respiration: Resp=16 B/min, SpO2=96 %, O2=2 lpm 18:43:26 No case complications noted. 18:43:28 Cine recording checked. 18:43:37 Patient moved to stretcher 18:43:40 Patient transported to [facility]PCU. End Study - Contrast Media Used In Study Contrast Total Opened (mL) Total Used (mL) Total Wasted (mL) Omnipaque 160 160 0 End Study - Maximum Contrast Load Max Contrast Load (mL) 287.5 End Study - Radiation Exposure Fluoro Time (minutes) 11.7 End Study - Patient Disposition Complications Transferred To Interventional Outcome No Critical Care Bed successful
--- NOTE | 2017-05-28 19:20 | EKG ---
Date Performed: 05/28/2017 Time Performed: 09:27:23 PTAGE: 76 years EKG: Sinus rhythm RIGHT BUNDLE BRANCH BLOCK LEFT POSTERIOR FASCICULAR BLOCK Since previous tracing, no significant suyapa nge noted ABNORMAL ECG PREVIOUS TRACING : 08/13/2010 16.26.48 DOCTOR: Davy Huang Interpretating Date/Time 05/28/2017 19:19:10
--- NOTE | 2017-05-28 20:34 | HHI.HP ---
HPI Service Family Medicine Primary Care Physician No Primary Care Physician Admission Diagnosis NSTEMI Diagnoses: (1) Chest pain (2) Diabetes mellitus with peripheral angiopathy (3) COPD (chronic obstructive pulmonary disease) (4) Hypertension (5) Constipation (6) GERD (gastroesophageal reflux disease) (7) Nutrition, metabolism, and development symptoms (8) No contraindication to deep vein thrombosis (DVT) prophylaxis International Travel<30 Days: No Contact w/Intl Traveler<30days: No Known Affected Area: No History of Present Illness 76 yo M with a past medical history of CAD s/p CABG presents to the ED with 2 days of substernal chest pressure. He had chest pressure intermittently through the day yesterday and woke up this morning with continued chest pressure. This discomfort was associated with some shortness of breath and occasional radiation of pressure to his jaw. He denies nausea/vomiting, denies diaphoresis, denies palpitations, denies syncope or near syncope. He is managed by a Environmental Health Aide in [place] which he last saw in 12/2016 without any acute changes in his medical plan. He had heart catheterization in 2016 without further intervention per his report. He has had 4 vessel CABG in 2010. Currently he states his symptoms have resolved and is without complaints. Of note he was diagnosed with flu and taken two doses of Tamiflu before self discontinuing the medication due to "feeling bad." He reports his flu symptoms had resolved prior to this episode. Past Family Social History Past Medical History COPD Hypertension Diabetes Mellitus, type II CAD s/p 4 vessel CABG 07/2010 Hyperlipidemia Peripheral Vascular Disease Chronic sinusitis Chronic allergic rhinitis Esophageal ulcers CKD stage 2 Preventive: Colonoscopy - 2010- benign polyps (scheduled in 08/2012 for repeat) Endoscopy - 2010 - reflux Pneumovax (2010) Other Physicians/Providers Involved in the Care of Patient: Jaun Sabillon (pcp) [phone] Andrea Thompson (vascular) [phone] Zaki White (cardiology) [phone] Julio Evangelista (pulmonary) [phone] Jase Tom (ophtho) [phone] Past Surgical History Deviated Septum surgery CABG x4 vessels 07/2010 Stent placement in bilateral legs 02/2012 Lower back surgery x2 - L3-L5 partial discectomy 1986 Shoulder surgery (rotator cuff) Left arm ORIF Bilateral Cataract removal L subclavian artery sent 2016 Meniscus surgery Allergies: Coded Allergies: No Known Allergies (Verified Adverse Reaction, Unknown, 05/28/17) Family History Father - Unknown Mother - TB Siblings: Children: Social History Marrital Status: Living Situation: Lives in [place], [place] 8 months of year, lives in [place] 4 months 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 Tobacco: former - quit in 1992, >10yr 1ppd Illicit drug use: none Alcohol: "couple of beers here and there," 1 beer per week Physical Exam Vital Signs Vital Signs Date Time Temp Pulse Resp B/P (MAP) Pulse Ox O2 Delivery O2 Flow Rate FiO2 05/28/17 16:00 98.4 78 20 158/76 (103) 98 05/28/17 16:00 84 05/28/17 15:00 83 05/28/17 14:00 78 05/28/17 13:30 82 05/28/17 13:30 98.5 78 20 148/98 (115) 98 05/28/17 13:11 84 16 107/56 (73) 98 Room Air 05/28/17 09:41 98 Room Air 05/28/17 09:41 149/96 (113) 05/28/17 09:41 98 Room Air 05/28/17 09:25 98.2 89 15 149/96 (113) 99 05/28/17 09:22 98.6 101 22 194/101 (132) 99 Room Air Physical Exam GENERAL: This is a well-nourished, well-developed patient, in no apparent distress. SKIN: No rashes, ecchymoses or lesions. Cool and dry. HEAD: Atraumatic. Normocephalic. No temporal or scalp tenderness. EYES: Pupils equal round and reactive. Extraocular motions intact. No scleral icterus. No injection or drainage. NECK: Trachea midline. No JVD or lymphadenopathy. Supple, nontender, no meningeal signs. CARDIOVASCULAR: Regular rate and rhythm without murmurs, gallops, or rubs. RESPIRATORY: Clear to auscultation. Breath sounds equal bilaterally. No wheezes , rales, or rhonchi. GASTROINTESTINAL: Abdomen soft, non-tender, nondistended. No hepato-splenomegaly , or palpable masses. No guarding. MUSCULOSKELETAL: Extremities without clubbing, cyanosis, or edema. NEUROLOGICAL: Awake and alert. Cranial nerves II through XII intact. Motor and sensory grossly within normal limits. Five out of 5 muscle strength in all muscle groups. Normal speech. Laboratory Laboratory Tests Test 05/28/17 09:40 White Blood Count 12.0 Red Blood Count 5.07 Hemoglobin 16.2 Hematocrit 44.9 Mean Corpuscular Volume 88.6 Mean Corpuscular Hemoglobin 31.9 Mean Corpuscular Hemoglobin Concent 36.0 Red Cell Distribution Width 14.0 Platelet Count 262 Mean Platelet Volume 7.5 Neutrophils (%) (Auto) 64.0 Lymphocytes (%) (Auto) 26.0 Monocytes (%) (Auto) 6.7 Eosinophils (%) (Auto) 2.7 Basophils (%) (Auto) 0.6 Neutrophils # (Auto) 7.7 Lymphocytes # (Auto) 3.1 Monocytes # (Auto) 0.8 Eosinophils # (Auto) 0.3 Basophils # (Auto) 0.1 CBC Comment AUTO DIFF Differential Comment AUTO DIFF CONFIRMED Prothrombin Time 10.3 Prothromb Time International Ratio 1.0 Activated Partial Thromboplast Time 28.9 Blood Urea Nitrogen 21 Creatinine 1.29 Random Glucose 186 Total Protein 7.5 Albumin 3.7 Calcium Level 9.4 Alkaline Phosphatase 74 Aspartate Amino Transf (AST/SGOT) 12 Alanine Aminotransferase (ALT/SGPT) 16 Total Bilirubin 0.7 Sodium Level 137 Potassium Level 4.1 Chloride Level 102 Carbon Dioxide Level 27.8 Anion Gap 7 Estimat Glomerular Filtration Rate 54 Total Creatine Kinase 46 Troponin I 0.18 B-Type Natriuretic Peptide 71 Result Diagram: 05/28/1740 05/28/17 0940 Imaging Last 72 hours Impressions Chest X-Ray 05/28/17 0935 Signed Impressions: Service Date/Time: Sunday, May 28, 2017 09:39 - CONCLUSION: No acute disease. MD Jeremias Hrererai VTE Risk Assessment Caprini VTE Risk Assessment: Mod/High Risk (score >= 2) Caprini Risk Assessment Model Point Value = 1 Point Value = 2 Point Value = 3 Point Value = 5 Age 41-60 Minor surgery BMI > 25 kg/m2 Swollen legs Varicose veins or History of unexplained or recurrent spontaneous Oral contraceptives or hormone replacement Sepsis (< 1 month) Serious lung disease, including pneumonia (< 1 month) Abnormal pulmonary function Acute myocardial infarction Congestive heart failure (< 1 month) History of inflammatory bowel disease Medical patient at bed rest Age 61-74 Arthroscopic surgery Major open surgery (> 45 min) Laparoscopic surgery (> 45 min) Malignancy Confined to bed (> 72 hours) Immobilizing plaster cast Central venous access Age >= 75 History of VTE Family history of VTE Factor V Leiden Prothrombin [id number] Lupus anticoagulant Anticardiolipin antibodies Elevated serum homocysteine Heparin-induced thrombocytopenia Other congenital or acquired thrombophilia Stroke (< 1 month) Elective arthroplasty Hip, pelvis, or leg fracture Acute spinal cord injury (< 1 month) Prophylaxis Regimen Total Risk Factor Score Risk Level Prophylaxis Regimen 0-1 Low Early ambulation 2 Moderate Order ONE of the following: *Sequential Compression Device (SCD) *Heparin 5000 units SQ BID 3-4 Higher Order ONE of the following medications: *Heparin 5000 units SQ TID *Enoxaparin/Lovenox 40 mg SQ daily (WT < 150 kg, CrCl > 30 mL/min) *Enoxaparin/Lovenox 30 mg SQ daily (WT < 150 kg, CrCl > 10-29 mL/min) *Enoxaparin/Lovenox 30 mg SQ BID (WT < 150 kg, CrCl > 30 mL/min) AND/OR *Sequential Compression Device (SCD) 5 or more Highest Order ONE of the following medications: *Heparin 5000 units SQ TID (Preferred with Epidurals) *Enoxaparin/Lovenox 40 mg SQ daily (WT < 150 kg, CrCl > 30 mL/min) *Enoxaparin/Lovenox 30 mg SQ daily (WT < 150 kg, CrCl > 10-29 mL/min) *Enoxaparin/Lovenox 30 mg SQ BID (WT < 150 kg, CrCl > 30 mL/min) AND *Sequential Compression Device (SCD) Assessment and Plan Assessment and Plan Mr. Blunt is a 76 y/o male presenting to the ED with chest pain admitted for ACS rule out. Problem List: (1) Chest pain ICD Codes: R07.9 - Chest pain, unspecified Status: Acute Plan: -DDx includes ACS, GERD, PE, pneumonia, panic attack, myocarditis, costochondritis. -CAD risk factors include smoking hx, Hx of NC, HTN, HLD, DM. -Pt. states CP has resolved with nitro and morphine. -Previous ECHO completed in [place], normal per patient. Previous EKG on 08/08 showed normal sinus rhythm with right bundle branch block. -EKG showed normal sinus rhythm with a heart rate of [address] depression in leads V4-6. Right bundle solitario block. Inverted T waves in leads aVR, V1. -CXR showed no acute disease -Initial Trop 0.18. Trend Lucia and EKGs x 2. If 2nd trop. is sig. increased, consult cardiology. -Heparin drip initiated in ER, orders placed -Supplemental O2. Daily aspirin. Protonix. -Morphine 2mg Q2 hrs PRN chest pain only. -Continue home Bystolic, Plavix, lisinopril, doses will provide mononitrate, aspirin, and Crestor -NTG PRN as no evidence of pump failure/hypoperfusion at this time. -Tele. -NPO for now in case of PCI. -AM BMP + Mg to detect/correct electrolyte abnormalities that could lower arrhythmia threshold. -Cardiology consulted, appreciate recommendations (2) Diabetes mellitus with peripheral angiopathy ICD Codes: E11.51 - Type 2 diabetes mellitus with diabetic peripheral angiopathy without gangrene Status: Chronic Plan: Patient with reported history of type 2 diabetes. Currently on home metformin, tradjenta, and Basaglar insulin. -Hold home diabetes medication -Sliding-scale insulin per protocol -A1c ordered (3) COPD (chronic obstructive pulmonary disease) ICD Codes: J44.9 - Chronic obstructive pulmonary disease Status: Chronic Plan: Patient was reported COPD without current exacerbation -Continue home albuterol when necessary for shortness of breath -Continue Advair daily -DuoNeb's ordered as needed for shortness of breath -Incentive spirometry (4) Hypertension ICD Codes: I10 - Hypertension Status: Chronic Plan: Patient with chronic hypertension -Continue home lisinopril, triamterene/HCTZ -Clonidine 0.1 mg every 6 hours when necessary for blood pressure greater than 180/100 (5) Constipation ICD Codes: K59.00 - Constipation Status: Chronic Plan: Patient with history of chronic constipation -Continue home Metamucil -Constipation protocol in place (6) GERD (gastroesophageal reflux disease) ICD Codes: K21.9 - Gastroesophageal reflux disease Status: Chronic Plan: Patient with history of gastroesophageal reflux disease -Continue home Protonix twice a day (7) Nutrition, metabolism, and development symptoms ICD Codes: R63.8 - Other symptoms and signs concerning food and fluid intake Status: Acute Plan: -Fluids: Patient appears hydrated. He is receiving fluid with heparin drip -Diet: Nothing by mouth for possible procedure -Electrolytes: Within normal limits, continue to monitor -Prophylaxis: Zofran when necessary for nausea/vomiting, clonidine when necessary for elevated blood pressure, constipation protocol and place, DuoNeb when necessary for shortness of breath (8) No contraindication to deep vein thrombosis (DVT) prophylaxis ICD Codes: Z78.9 - Other specified health status Status: Acute Plan: -Heparin drip per protocol for ACS -SCDs Physician Certification 2 Midnight Certification Type: Admission for Inpatient Services Order for Inpatient Services The services are ordered in accordance with Medicare regulations or non- Medicare payer requirements, as applicable. In the case of services not specified as inpatient-only, they are appropriately provided as inpatient services in accordance with the 2-midnight benchmark. Estimated LOS (days): 2 2 days is the estimated time the patient will need to remain in the hospital, assuming treatment plan goals are met and no additional complications. Post-Hospital Plan: Home Problem Qualifiers (1) Chest pain: Qualified Codes: I20.0 - Unstable angina (2) COPD (chronic obstructive pulmonary disease): Qualified Codes: J41.0 - Simple chronic bronchitis (3) Hypertension: Qualified Codes: I10 - Essential (primary) hypertension (4) Constipation: Qualified Codes: K59.00 - Constipation, unspecified (5) GERD (gastroesophageal reflux disease): Qualified Codes: K21.9 - Gastro-esophageal reflux disease without esophagitis Sánchez Fletcher MD May 28, 2017 20:34
[2017-05-28] MEDS: INSULIN ASPART SUPPLEMENTAL SCALE SQ SCH ×2 (21:00→21:48)
--- NOTE | 2017-05-28 21:20 | MB ---
cc: ALLISON BURT DATE OF CONSULTATION 05/28/2017 HISTORY OF THE PRESENT ILLNESS A 76-year-old white male with a history of coronary artery disease and four-vessel bypass by Dr. Gudino in 07/2010. He developed substernal chest discomfort radiating into his neck and left arm which was similar to his pain prior to his bypass yesterday. He had another episode today associated with shortness of breath. He was brought to the emergency room. His troponin is elevated and is consistent with non-ST elevation myocardial infarction. PAST MEDICAL HISTORY Positive for: 1. Peripheral vascular disease. History of peripheral vascular stenting. 2. Four-vessel bypass in 07/2010 with TERRAZAS to LAD, vein graft to marginal one, obtuse marginal two and right coronary. 3. History of COPD. 4. Hypertension. 5. Diabetes mellitus. 6. Dyslipidemia. 7. Chronic sinusitis. 8. Chronic allergic rhinitis. 9. Esophageal ulcers. 10. Chronic kidney disease stage II. 11. History of colonoscopy for benign polyps. 12. Gastroesophageal reflux disease. 13. History of lower back surgery, partial discectomy. 14. Rotator cuff surgery. 15. Left arm open reduction, internal fixation. 16. Bilateral cataract surgery. 17. Left subclavian artery stenting 2016. 18. Meniscus surgery. ALLERGIES None. SOCIAL HISTORY The patient does not smoke but smoked until 1992. He drinks alcohol infrequently. His is and accompanied by his . 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 FAMILY HISTORY Negative for heart disease. REVIEW OF SYSTEMS Otherwise negative. PHYSICAL EXAMINATION VITAL SIGNS: Blood pressure 158/76, pulse 78 and regular. HEENT: Negative. NECK: 2+ carotid upstrokes. No bruits. LUNGS: Clear. HEART: Regular with no murmur, gallop or rub. ABDOMEN: Soft. No bruits. EXTREMITIES: Without edema. Diminished distal pulses. NEUROLOGIC: Examination is grossly nonfocal. EKG was reviewed and showed sinus tachycardia, right axis, right bundle-branch block. LABORATORY DATA Hemoglobin 16.2. Potassium 4.1, creatinine 1.29, AST 12, ALT 16. Troponin 0.18. CK is 46. BNP 75. DIAGNOSES 1. Eht-EJ-[id number] myocardial infarction. 2. Coronary artery disease, history of four vessel bypass. 3. Peripheral vascular disease. 4. Diabetes mellitus. 5. Hypertension. 6. Dyslipidemia. 7. Chronic obstructive pulmonary disease. DISPOSITION Mr. Blunt will undergo cardiac catheterization and coronary intervention if necessary. We will continue his current medical program including atorvastatin, aspirin, Plavix, beta anh, lisinopril and isosorbide. His last cardiac catheterization in 2015 showed all four grafts patent and disease in smaller branches. Risks and benefits were discussed with the patient and his , they understand the plan and wish to proceed. Allison Burt MD OIsabell/KK /4:33 PM /8:59 PM RIGOBERTO
[2017-05-28] MEDS ORDERED: OXYMETAZOLINE HCL 0.05% 15 ML NASAL SPRAY NASAL PRN (21:45)
[2017-05-28] MEDS: PANTOPRAZOLE SOD 40 MG DELAYED RELEASE TAB PO SCH (21:48)
[2017-05-28] MEDS: BUDESONIDE-FORMOTEROL 160/4.5 MCG INHALER INH SCH (21:48)
[2017-05-28] MEDS: LISINOPRIL 20 MG TAB PO SCH (21:48)
[2017-05-28 22:11] LABS: AUTOMATED NEUTROPHIL # 6.3 TH/MM3 (1.8-7.7); BASOPHIL # 0.1 TH/MM3 (0-0.2); BASOPHIL % 0.8 % (0.0-2.0); EOSINOPHIL # 0.4 TH/MM3 (0-0.4); EOSINOPHIL % 3.5 % (0.0-4.0); HEMATOCRIT 40.9 % (39.0-51.0); HEMOGLOBIN 14.3 GM/DL (13.0-17.0); LYMPH % 29.8 % (9.0-44.0); LYMPHOCYTE # 3.2 TH/MM3 (1.0-4.8); MEAN CELL VOLUME 88.7 FL (80.0-100.0); MEAN PLATELET VOLUME 7.4 FL (7.0-11.0); MONO % 6.8 % (0.0-8.0); MONOCYTE # 0.7 TH/MM3 (0-0.9); NEUT % 59.1 % (16.0-70.0); PLATELET COUNT 220 TH/MM3 (150-450); RED BLOOD COUNT 4.61 MIL/MM3 (4.50-5.90); RED CELL DISTRIBUTION WIDTH 13.9 % (11.6-17.2); WHITE BLOOD COUNT 10.7 TH/MM3 (4.0-11.0)
[2017-05-28] MEDS ORDERED: HEPARIN 25,000 UNITS-D5W 250 ML - PREMIX IV PRN (23:45)
[2017-05-29] VITALS (26 sets, daily range): BP systolic 85–107; BP diastolic 49–62; PULSE 70–98; RESP 16–17; TEMP 97.8–99.7; O2SAT 92–95
[2017-05-29 06:02] LABS: AUTOMATED NEUTROPHIL # 7.2 TH/MM3 (1.8-7.7); BASOPHIL # 0.1 TH/MM3 (0-0.2); BASOPHIL % 0.9 % (0.0-2.0); EOSINOPHIL # 0.3 TH/MM3 (0-0.4); EOSINOPHIL % 2.6 % (0.0-4.0); HEMATOCRIT 39.1 % (39.0-51.0); HEMOGLOBIN 13.8 GM/DL (13.0-17.0); LYMPH % 21.7 % (9.0-44.0); LYMPHOCYTE # 2.3 TH/MM3 (1.0-4.8); MEAN CELL VOLUME 88.8 FL (80.0-100.0); MEAN CORPUSCULAR HEMOGLOBIN 31.4 PG (27.0-34.0); MEAN CORPUSCULAR HGB CONC 35.3 % (32.0-36.0); MEAN PLATELET VOLUME 7.5 FL (7.0-11.0); MONO % 8.1 % (0.0-8.0); MONOCYTE # 0.9 TH/MM3 (0-0.9); NEUT % 66.7 % (16.0-70.0); PLATELET COUNT 223 TH/MM3 (150-450); RED CELL DISTRIBUTION WIDTH 14.1 % (11.6-17.2); WHITE BLOOD COUNT 10.8 TH/MM3 (4.0-11.0)
[2017-05-29] MEDS: ISOSORBIDE MONONITRATE 60 MG TAB PO SCH ×2 (06:14→08:10)
[2017-05-29 06:29] LABS: BICARBONATE 23.5 MEQ/L (21.0-32.0); BLOOD UREA NITROGEN 22 MG/DL (7-18); CALCIUM 8.2 MG/DL (8.5-10.1); CHLORIDE 105 MEQ/L (98-107); CHOLESTEROL 149 MG/DL (120-200); CHOLESTEROL/ HDL RATIO 4.34 RATIO; CREATININE 1.17 MG/DL (0.60-1.30); GLOMERULAR FILTRATION RATE 60 ML/MIN (>89); GLUCOSE,RANDOM 162 MG/DL (74-106); HDL CHOLESTEROL 34.3 MG/DL (40.0-60.0); LDL CHOLESTEROL 102 MG/DL (0-99); SODIUM (NA) 136 MEQ/L (136-145); TRIGLYCERIDES 65 MG/DL (42-150)
[2017-05-29 06:30] LABS: TROPONIN I 1.69 NG/ML (0.02-0.05)
[2017-05-29] MEDS ORDERED: ATROPINE SULFATE 1 MG/10 ML SYRINGE ONE (07:38)
[2017-05-29] MEDS: NEBIVOLOL 10 MG TAB PO SCH (08:09)
[2017-05-29] MEDS: TRIAMTERENE/HCTZ 37.5 MG/25 MG TAB PO SCH (08:10)
[2017-05-29] MEDS: LISINOPRIL 20 MG TAB PO SCH ×2 (08:10→19:57)
[2017-05-29] MEDS: PANTOPRAZOLE SOD 40 MG DELAYED RELEASE TAB PO SCH ×2 (08:14→19:50)
[2017-05-29] MEDS: DOCUSATE SODIUM 50 MG/SENNA 8.6 MG TAB PO SCH ×2 (08:15→19:57)
[2017-05-29] MEDS: CLOPIDOGREL 75 MG TAB PO SCH (08:15)
[2017-05-29] MEDS: CHOLECALCIFEROL (VIT D3) 1000 UNIT TAB PO SCH ×2 (08:15→09:00)
[2017-05-29] MEDS: ASPIRIN 81 MG CHEW TAB CHEW SCH (08:15)
[2017-05-29] MEDS: SODIUM CHLORIDE 0.9% FLUSH 10 ML FLUSH IV FLUSH SCH ×2 (08:15→19:50)
[2017-05-29] MEDS: INSULIN ASPART SUPPLEMENTAL SCALE SQ SCH ×4 (08:16→20:00)
[2017-05-29] MEDS: BUDESONIDE-FORMOTEROL 160/4.5 MCG INHALER INH SCH ×2 (08:37→19:50)
[2017-05-29] MEDS ORDERED: PSYLLIUM PO SCH (09:00)
[2017-05-29] MEDS ORDERED: NON-FORMULARY DRUG (Coenzyme Q10 (Ubidecarenone) (Co Q 10) 200 MG) PO SCH (09:00)
[2017-05-29] MEDS ORDERED: SODIUM CHLOR 0.9% 250 ML INJ 250 ML IV ONE (10:30)
[2017-05-29] MEDS ORDERED: ACETAMINOPHEN/HYDROcodone 325 MG/5 MG TAB PO PRN (10:30)
[2017-05-29] MEDS: ACETAMINOPHEN/HYDROcodone 325 MG/5 MG TAB PO PRN ×2 (11:46→19:56)
--- NOTE | 2017-05-29 13:23 | PD.CARD.PN ---
Subjective Subjective Remarks No angina or SOB, c/o diaphoresis, N/V Objective Medications Current Medications Medications (Trade) Dose Ordered Sig/Stacy Route Start Time Stop Time Status Last Admin (NS Flush) 2 ml UNSCH PRN IV FLUSH 05/28/17 11:15 (NS Flush) 2 ml BID IV FLUSH 05/28/17 11:15 05/29/17 08:15 (Narcan Inj) 0.4 mg UNSCH PRN IV PUSH 05/28/17 11:15 (Zofran Inj) 4 mg Q6H PRN IVP 05/28/17 13:00 05/29/17 08:38 (Tylenol) 650 mg Q6H PRN PO 05/28/17 13:00 05/29/17 07:08 (Ruby-Colace) 1 tab BID PO 05/28/17 13:00 05/28/17 21:48 (Milk Of Magnesia Liq) 30 ml Q12H PRN PO 05/28/17 13:00 (Senokot) 17.2 mg Q12H PRN PO 05/28/17 13:00 (Dulcolax Supp) 10 mg DAILY PRN RECTAL 05/28/17 13:00 (Lactulose Liq) 30 ml DAILY PRN PO 05/28/17 13:00 (Aspirin Chew) 81 mg DAILY CHEW 05/29/17 09:00 05/29/17 08:15 (Vitamin D3) 1,000 units DAILY PO 05/29/17 09:00 (Plavix) 75 mg DAILY PO 05/29/17 09:00 05/29/17 08:15 (Imdur) 60 mg DAILY@0700 PO 05/29/17 07:00 05/29/17 06:14 (Prinivil) 20 mg BID PO 05/28/17 21:00 05/28/17 21:48 (Protonix) 40 mg BID PO 05/28/17 21:00 05/29/17 08:14 (Maxzide 37.5-25 Mg) 1 tab DAILY PO 05/29/17 09:00 (Symbicort 160-4.5 Mcg Inh) 2 puff BID INH 05/28/17 21:00 05/29/17 08:37 (Bystolic) 20 mg DAILY PO 05/29/17 09:00 (Lipitor) 10 mg EVERY OTHER DAY PO 05/30/17 09:00 (D50w (Vial) Inj) 50 ml UNSCH PRN IV PUSH 05/28/17 13:00 (Glucagon Inj) 1 mg UNSCH PRN OTHER 05/28/17 13:00 (NovoLOG SUPPLEMENTAL SCALE) 1 ACHS SLIDING SCALE SQ 05/28/17 17:00 05/29/17 08:16 (Catapres) 0.1 mg Q6H PRN PO 05/28/17 13:00 (Duoneb Neb) 1 ampule Q6HR NEB PRN NEB 05/28/17 13:00 (Nitrostat Sl) 0.4 mg Q5M PRN SL 05/28/17 13:30 (Morphine Inj) 2 mg Q5M PRN IV PUSH 05/28/17 13:30 (Restoril) 15 mg HS PRN PO 05/28/17 18:45 (Afrin 0.05% Jaswinder [place]) 1 spray Q12HR PRN NASAL 05/28/17 21:45 05/28/17 23:04 Heparin Sodium/ Dextrose 250 ml @ 10 mls/hr TITRATE PRN IV 05/28/17 23:45 05/29/17 00:06 ([place] 5-325 Mg) 1 tab Q6H PRN PO 05/29/17 10:30 05/29/17 11:46 ([place] 5-325 Mg) 2 tab Q6H PRN PO 05/29/17 10:30 Vital Signs / I&O Vital Signs Date Time Temp Pulse Resp B/P (MAP) Pulse Ox O2 Delivery O2 Flow Rate FiO2 05/29/17 12:56 16 05/29/17 12:13 70 05/29/17 11:16 97.8 89 16 95/52 (66) 93 05/29/17 11:16 86 05/29/17 10:14 92 05/29/17 09:20 82 05/29/17 08:13 93 21 05/29/17 08:09 16 05/29/17 08:00 74 05/29/17 08:00 97.9 85 16 90/51 (64) 93 05/29/17 06:02 70 05/29/17 05:00 79 05/29/17 04:00 77 05/29/17 03:37 98.3 90 17 107/62 (77) 94 05/29/17 03:00 83 05/29/17 02:00 81 05/29/17 01:05 79 05/29/17 00:00 84 05/28/17 23:30 96 05/28/17 23:00 83 05/28/17 23:00 98.2 80 17 101/56 (71) 96 05/28/17 19:00 84 05/28/17 19:00 98.6 80 17 155/83 (107) 95 05/28/17 16:00 98.4 78 20 158/76 (103) 98 05/28/17 16:00 84 05/28/17 15:00 83 05/28/17 14:00 78 05/28/17 13:30 82 05/28/17 13:30 98.5 78 20 148/98 (115) 98 I/O 05/28/17 05/28/17 05/28/17 05/29/17 05/29/17 05/29/17 07:00 15:00 23:00 07:00 15:00 23:00 Intake Total 19 ml 516 ml 781.5 ml 260 ml Output Total 300 ml 500 ml Balance 19 ml 216 ml 281.5 ml 260 ml Intake Oral 0 ml 720 ml IV Total 19 ml 516 ml 61.5 ml 260 ml Output Urine Total 300 ml 500 ml # Bowel Movements 0 Physical Exam GENERAL: In NAD. SKIN: Warm and dry. HEAD: Normocephalic. EYES: No scleral icterus. No injection or drainage. NECK: Supple, trachea midline. No JVD or lymphadenopathy. CARDIOVASCULAR: Regular rate and rhythm without murmurs, gallops, or rubs. RESPIRATORY: Breath sounds equal bilaterally. No accessory muscle use. GASTROINTESTINAL: Abdomen soft, non-tender, nondistended. MUSCULOSKELETAL: No cyanosis, or edema. Groin stable Laboratory Laboratory Tests Test 05/28/17 21:53 05/29/17 05:05 05/29/17 11:38 White Blood Count 10.7 TH/MM3 10.8 TH/MM3 Red Blood Count 4.61 MIL/MM3 4.40 MIL/MM3 Hemoglobin 14.3 GM/DL 13.8 GM/DL Hematocrit 40.9 % 39.1 % Mean Corpuscular Volume 88.7 FL 88.8 FL Mean Corpuscular Hemoglobin 31.0 PG 31.4 PG Mean Corpuscular Hemoglobin Concent 35.0 % 35.3 % Red Cell Distribution Width 13.9 % 14.1 % Platelet Count 220 TH/MM3 223 TH/MM3 Mean Platelet Volume 7.4 FL 7.5 FL Neutrophils (%) (Auto) 59.1 % 66.7 % Lymphocytes (%) (Auto) 29.8 % 21.7 % Monocytes (%) (Auto) 6.8 % 8.1 % Eosinophils (%) (Auto) 3.5 % 2.6 % Basophils (%) (Auto) 0.8 % 0.9 % Neutrophils # (Auto) 6.3 TH/MM3 7.2 TH/MM3 Lymphocytes # (Auto) 3.2 TH/MM3 2.3 TH/MM3 Monocytes # (Auto) 0.7 TH/MM3 0.9 TH/MM3 Eosinophils # (Auto) 0.4 TH/MM3 0.3 TH/MM3 Basophils # (Auto) 0.1 TH/MM3 0.1 TH/MM3 CBC Comment DIFF FINAL DIFF FINAL Differential Comment Activated Partial Thromboplast Time 46.3 SEC 44.0 SEC 26.5 SEC Troponin I 0.46 NG/ML 1.69 NG/ML Blood Urea Nitrogen 22 MG/DL Creatinine 1.17 MG/DL Random Glucose 162 MG/DL Calcium Level 8.2 MG/DL Sodium Level 136 MEQ/L Potassium Level 4.9 MEQ/L Chloride Level 105 MEQ/L Carbon Dioxide Level 23.5 MEQ/L Anion Gap 8 MEQ/L Estimat Glomerular Filtration Rate 60 ML/MIN Total Creatine Kinase 205 U/L Creatine Kinase MB 6.7 NG/ML Triglycerides Level 65 MG/DL Cholesterol Level 149 MG/DL LDL Cholesterol 102 MG/DL HDL Cholesterol 34.3 MG/DL Cholesterol/HDL Ratio 4.34 RATIO Assessment and Plan Problem List: (1) NSTEMI (non-ST elevated myocardial infarction) ICD Codes: I21.4 - Non-ST elevation (NSTEMI) myocardial infarction Status: Acute (2) CAD (coronary artery disease) ICD Codes: I25.10 - Atherosclerotic heart disease of [place] coronary artery without angina pectoris (3) Hx of CABG ICD Codes: Z95.1 - History of coronary artery bypass surgery Status: Acute (4) Diabetes mellitus, type 2 ICD Codes: E11.9 - Type 2 diabetes mellitus Status: Acute (5) Hypertension ICD Codes: I10 - Hypertension Status: Chronic Assessment and Plan Successful SVT-OM stenting yest. Sheath removed today, groin stable. Continue Plavix, baby ASA, aggressive risk factor modification. Monitor overnight. D/w pt and . Problem Qualifiers (1) Hypertension: Qualified Codes: I10 - Essential (primary) hypertension Allison Chavarria MD May 29, 2017 13:23
--- NOTE | 2017-05-29 15:00 | HHI.FPPN ---
Subjective Remarks Patient seen and examined this morning by medical team. Yesterday afternoon patient's troponin continued to increase and ultimately was taken to the catheterization lab by cardiology with 1 stent placed. Sheath was removed this morning by cardiology without complications. However, patient had a vagal response after moving to change his sheets from the bed and became hypotensive. He endorses nausea with 1 episode of vomiting and diarrhea as well as diaphoresis at that time. He was given to 250 mL boluses of NS with resolution of symptoms at this time. His only complaint currently is hunger and the desire to be discharged home today. He denies any fevers, chills, shortness of breath, chest pain, or calf tenderness. Medical team discussed he would likely need to be monitored overnight due to his hypotension was likely discharge tomorrow pending clinical course. (Toan Black MD R2) Objective Vitals Vital Signs Date Time Temp Pulse Resp B/P (MAP) Pulse Ox O2 Delivery O2 Flow Rate FiO2 05/29/17 14:01 86 05/29/17 13:44 95 05/29/17 12:56 16 05/29/17 12:13 70 05/29/17 11:16 97.8 89 16 95/52 (66) 93 05/29/17 11:16 86 05/29/17 10:14 92 05/29/17 09:20 82 05/29/17 08:13 93 21 05/29/17 08:09 16 05/29/17 08:00 74 05/29/17 08:00 97.9 85 16 90/51 (64) 93 05/29/17 06:02 70 05/29/17 05:00 79 05/29/17 04:00 77 05/29/17 03:37 98.3 90 17 107/62 (77) 94 05/29/17 03:00 83 05/29/17 02:00 81 05/29/17 01:05 79 05/29/17 00:00 84 05/28/17 23:30 96 05/28/17 23:00 83 05/28/17 23:00 98.2 80 17 101/56 (71) 96 05/28/17 19:00 84 05/28/17 19:00 98.6 80 17 155/83 (107) 95 05/28/17 16:00 98.4 78 20 158/76 (103) 98 05/28/17 16:00 84 05/28/17 15:00 83 I/O 05/28/17 05/28/17 05/28/17 05/29/17 05/29/17 05/29/17 07:00 15:00 23:00 07:00 15:00 23:00 Intake Total 19 ml 516 ml 781.5 ml 260 ml Output Total 300 ml 500 ml Balance 19 ml 216 ml 281.5 ml 260 ml Intake Oral 0 ml 720 ml IV Total 19 ml 516 ml 61.5 ml 260 ml Output Urine Total 300 ml 500 ml # Bowel Movements 0 (Toan Black MD R2) Result Diagram: 05/29/17 0505 05/29/17 0505 Objective Remarks GENERAL: Well-nourished, well-developed male lying in bed in no acute distress. at the bedside SKIN: Warm and dry. No rash. R inner groin: Catheterization puncture site within normal limits without any signs of infection or bleeding appreciated. Pressure dressing applied, CDI. HEENT: Atraumatic, normocephalic with extraocular motions intact. No rhinorrhea. No visible lymphadenopathy or jugulovenous distension appreciated. CARDIOVASCULAR: Regular rate and rhythm without obvious murmurs, gallops, or rubs. 2+ pulses in all four extremities. RESPIRATORY: Clear to auscultation bilaterally with no crackles, wheezes, or rhonchi. No increased work of breathing. GASTROINTESTINAL: Abdomen soft, non-tender, nondistended with positive bowel sounds. No masses appreciated. MUSCULOSKELETAL: No cyanosis or edema. No calf tenderness. NEURO/PSYCH: Afocal. Awake, alert, and oriented x3. Normal speech and judgement. (Toan Black MD R2) A/P Assessment and Plan Mr. Blunt is a 76 y/o male presenting to the ED with chest pain admitted for NSTEMI and is s/o cardiac catheterization with stent placement. Discharge Planning Likely tomorrow pending clinical course (Toan Black MD R2) Attending Attestation Patient examined and case discussed with resident physicians. I have read the above note and agree with the assessment/plan as discussed with me. I was involved in all medical decision making for this patient. Sánchez Fletcher MD (Sánchez Fletcher MD) Problem List: (1) NSTEMI (non-ST elevated myocardial infarction) ICD Codes: I21.4 - Non-ST elevation (NSTEMI) myocardial infarction Status: Acute Plan: -DDx includes ACS, GERD, PE, pneumonia, panic attack, myocarditis, costochondritis. -CAD risk factors include smoking hx, Hx of [place], HTN, HLD, DM. -Previous ECHO completed in [place], normal per patient. Previous EKG on 08/08 showed normal sinus rhythm with right bundle branch block. -EKG showed normal sinus rhythm with a heart rate of [address] depression in leads V4-6. Right bundle solitario block. Inverted T waves in leads aVR, V1. -CXR showed no acute disease -Trop 0.18, 0.46, 1.69 -Supplemental O2. Daily aspirin. Protonix. -Morphine 2mg Q2 hrs PRN chest pain only. -Continue home Bystolic, Plavix, lisinopril, doses will provide mononitrate, aspirin, and Crestor -NTG PRN as no evidence of pump failure/hypoperfusion at this time. -Tele. -Cardiology consulted, appreciate recommendations -Cardiac catheterization 05/27/17 with 1 stent placed, uncomplicated procedure -Plavix with ASA -Monitor overnight (2) Hypotensive episode ICD Codes: I95.9 - Hypotension, unspecified Status: Acute Plan: Patient with one hypotensive episode with nausea, vomiting, diarrhea and diaphoresis. -Per chart review, patient's blood pressure averages 100-120 systolic as an outpatient -Normal saline 250 mL bolus 2 -Patient asymptomatic on exam and is currently hungry -Plan to monitor patient's blood pressure with encouraged oral intake and fluids , medical team to be hesitant with IV fluids to avoid possible heart strain or fluid overload (3) Diabetes mellitus with peripheral angiopathy ICD Codes: E11.51 - Type 2 diabetes mellitus with diabetic peripheral angiopathy without gangrene Status: Chronic Plan: Patient with reported history of type 2 diabetes. Currently on home metformin, tradjenta, and Basaglar insulin. -Hold home diabetes medication -Sliding-scale insulin per protocol -A1c ordered (4) COPD (chronic obstructive pulmonary disease) ICD Codes: J44.9 - Chronic obstructive pulmonary disease Status: Chronic Plan: Patient was reported COPD without current exacerbation -Continue home albuterol when necessary for shortness of breath -Continue Advair daily -DuoNeb's ordered as needed for shortness of breath -Incentive spirometry (5) Hypertension ICD Codes: I10 - Hypertension Status: Chronic Plan: Patient with chronic hypertension -Continue home lisinopril, triamterene/HCTZ -Clonidine 0.1 mg every 6 hours when necessary for blood pressure greater than 180/100 (6) Constipation ICD Codes: K59.00 - Constipation Status: Chronic Plan: Patient with history of chronic constipation -Continue home Metamucil -Constipation protocol in place (7) GERD (gastroesophageal reflux disease) ICD Codes: K21.9 - Gastroesophageal reflux disease Status: Chronic Plan: Patient with history of gastroesophageal reflux disease -Continue home Protonix twice a day (8) Nutrition, metabolism, and development symptoms ICD Codes: R63.8 - Other symptoms and signs concerning food and fluid intake Status: Acute Plan: -Fluids: Patient appears hydrated. He is receiving fluid with heparin drip -Diet: Nothing by mouth for possible procedure -Electrolytes: Within normal limits, continue to monitor -Prophylaxis: Zofran when necessary for nausea/vomiting, clonidine when necessary for elevated blood pressure, constipation protocol and place, DuoNeb when necessary for shortness of breath (9) No contraindication to deep vein thrombosis (DVT) prophylaxis ICD Codes: Z78.9 - Other specified health status Status: Acute Plan: -Heparin drip per protocol for ACS -SCDs (Toan Black MD R2) Problem Qualifiers (1) COPD (chronic obstructive pulmonary disease): Qualified Codes: J41.0 - Simple chronic bronchitis (2) Hypertension: Qualified Codes: I10 - Essential (primary) hypertension (3) Constipation: Qualified Codes: K59.00 - Constipation, unspecified (4) GERD (gastroesophageal reflux disease): Qualified Codes: K21.9 - Gastro-esophageal reflux disease without esophagitis Toan Black MD R2 May 29, 2017 15:00 Sánchez Fletcher MD May 29, 2017 16:31
[2017-05-29 16:44] LABS: HEMOGLOBIN A1C 7.8 % (4.3-6.0)
--- NOTE | 2017-05-29 16:50 | HHI.DCPOC ---
Discharge Care Plan Diagnosis: (1) NSTEMI (non-ST elevated myocardial infarction) Goals to Promote Your Health * To prevent worsening of your condition and complications * To maintain your health at the optimal level Directions to Meet Your Goals Take your medications as prescribed Follow your dietary instruction Follow activity as directed Keep your appointments as scheduled Take your immunizations and boosters as scheduled If your symptoms worsen call your PCP, if no PCP go to Urgent Care Center or Emergency Room Smoking is Dangerous to Your Health. Avoid second hand smoke Call the 24-hour hour crisis hotline for domestic abuse at Toan Black MD R2 May 29, 2017 16:50
--- NOTE | 2017-05-29 21:48 | MR ---
cc: CORNELIUS BURT DATE 05/28/17 INDICATION Non-ST elevation myocardial function, coronary artery disease, history of four-vessel coronary bypass, cardiomyopathy. PROCEDURE PERFORMED 1. Retrograde heart catheterization with left ventriculography, selective coronary angiography, saphenous venous graft angiography, left internal mammary artery angiography 2. Stenting of saphenous venous graft to the first obtuse marginal artery. 3. Moderate sedation. ACCESS SITE Right femoral artery EQUIPMENT USED 5 Ecuadorean pigtail catheter, 5 Ecuadorean JL-4 and AR modified coronary catheters, left internal mammary artery catheter, AR-1 guide, marker wire, 3.0 x 30 mm Mandeep stent at 21 atmospheres to the proximal portion of the saphenous venous graft to the first obtuse marginal artery. MEDICATIONS 1. Versed 2. IV Fentanyl 3. IV Heparin 4. IV Nitroglycerin IC. 5. Nipride IC. 6. Plavix 3 mg p.o. CONTRAST Omnipaque 160 mL COMPLICATIONS None BLOOD LOSS Less than 10 mL. METHOD OF HEMOSTASIS Manual compression RESULTS A. HEMODYNAMICS Heart rate 80 beats per minute, left end-diastolic pressure 4 mmHg. Left ventricle 115/4, aorta 115/51/77. B. LEFT VENTRICULOGRAPHY ejection fraction appointments 40% wall motion inferobasal akinesis and thorough anterior and apical hyperkinesis, no mitral regurgitation. There was aortic dilatation. C. CORONARY ANGIOGRAPHY Left main artery patent. Left descending artery is totally occluded in the mid portion distally to the first diagonal branch. V1 patent. First septal patent and feeds RCA through septal collaterals. Left circumflex artery is totally occluded in the mid portion. OM1 has 90% proximal stenosis. Right coronary artery is a dominant vessel which is totally occluded at its ostium and heavily calcified. Distal RCA fills by [id number] collaterals. Left internal mammary artery graft to the left descending artery is widely patent. Saphenous venous graft to the first obtuse marginal artery has 99% stenosis in the proximal portion, stenosis in the SVG to OM1 is 25 mm long, pre ILSA flow II, post ILSA flow III, post stenosis zero. This is a type C lesion. Saphenous venous graft to the second obtuse marginal artery is occluded. Saphenous venous graft to the right coronary artery is totally occluded. Post intervention angiography initially revealed brief episodes of ___ low which completely resolved with administration of IC nitroglycerin and nitroprusside. Final angiography revealed excellent patency of the stented segment and no evidence of dissection, thrombosis or __embolization. DIAGNOSES 1. Severe multivessel coronary artery disease with 99% stenosis of the saphenous venous graft to the first obtuse marginal artery, patent TERRAZAS to LAD and total occlusion of the vein graft to the second obtuse marginal artery and the right coronary artery. 2. Moderate left ventricular dysfunction consistent with ischemic cardiomyopathy. 3. Successful stenting of the saphenous venous graft to the first obtuse marginal artery. DISPOSITION Mr. Blunt will be monitored on telemetry after his procedure. We will continue long-term therapy with Plavix and aspirin. He will also continue aggressive risk modification of his cardiac risk factors. MD ACE Hoang/ /6:38 PM /9:28 PM
[2017-05-30] VITALS (24 sets, daily range): BP systolic 83–139; BP diastolic 53–67; PULSE 64–99; RESP 16–17; TEMP 97.7–99.7; O2SAT 92–99
--- NOTE | 2017-05-30 00:31 | EKG ---
Date Performed: 05/29/2017 Time Performed: 05:42:54 PTAGE: 76 years EKG: Sinus rhythm Indeterminate axis Right bundle branch block Inferior T wave changes are nonspecific Abnormal ECG PREVIOUS TRACING : 05/28/2017 09.27 Since the prior tracing, there has been no significant barr DOCTOR: Fadi Edward Interpretating Date/Time 05/30/2017 00:30:46
[2017-05-30 04:15] LABS: AUTOMATED NEUTROPHIL # 8.6 TH/MM3 (1.8-7.7); BASOPHIL # 0.1 TH/MM3 (0-0.2); BASOPHIL % 0.7 % (0.0-2.0); EOSINOPHIL # 0.2 TH/MM3 (0-0.4); EOSINOPHIL % 1.4 % (0.0-4.0); HEMATOCRIT 36.1 % (39.0-51.0); HEMOGLOBIN 12.3 GM/DL (13.0-17.0); MEAN CELL VOLUME 90.1 FL (80.0-100.0); MEAN CORPUSCULAR HEMOGLOBIN 30.6 PG (27.0-34.0); MEAN PLATELET VOLUME 7.2 FL (7.0-11.0); MONO % 8.8 % (0.0-8.0); NEUT % 72.1 % (16.0-70.0); PLATELET COUNT 208 TH/MM3 (150-450); RED BLOOD COUNT 4.01 MIL/MM3 (4.50-5.90); RED CELL DISTRIBUTION WIDTH 14.1 % (11.6-17.2)
[2017-05-30 04:40] LABS: BICARBONATE 24.8 MEQ/L (21.0-32.0); CALCIUM 7.9 MG/DL (8.5-10.1); CREATININE 3.01 MG/DL (0.60-1.30)
[2017-05-30] MEDS ORDERED: SODIUM CHLOR 0.9% 1000 ML INJ 1,000 ML IV SCH (07:22)
[2017-05-30] MEDS: INSULIN ASPART SUPPLEMENTAL SCALE SQ SCH ×3 (08:00→17:00)
--- NOTE | 2017-05-30 08:38 | HHI.FPPN ---
Subjective Remarks No acute events overnight. Patient lying in bed this AM, at bedside. BP in room 126/76. Patient has no complaints this AM. He states that he hasn't been eating much, but was able to drink Ensure. He is interested in drinking more Ensure. He denies dysuria, hematuria, fever, CP, SOB, dizziness, fatigue, and N/ V. (Anya Hancock MD R1) Objective Vitals Vital Signs Date Time Temp Pulse Resp B/P (MAP) Pulse Ox O2 Delivery O2 Flow Rate FiO2 05/30/17 06:03 72 05/30/17 05:05 81 05/30/17 04:03 90 05/30/17 03:22 99.7 89 17 83/53 (63) 92 05/30/17 03:00 99 05/30/17 02:00 91 05/30/17 01:00 90 05/30/17 00:03 89 05/29/17 23:14 99.7 89 17 91/49 (63) 92 05/29/17 23:00 82 05/29/17 22:00 90 05/29/17 21:42 17 05/29/17 21:00 89 05/29/17 20:00 91 05/29/17 19:00 98.2 98 17 85/52 (63) 95 05/29/17 19:00 88 05/29/17 18:05 91 05/29/17 17:02 74 05/29/17 16:00 83 05/29/17 15:17 98.0 94 16 92/53 (66) 95 05/29/17 15:17 77 05/29/17 14:01 86 05/29/17 13:44 95 05/29/17 12:13 70 05/29/17 11:16 97.8 89 16 95/52 (66) 93 05/29/17 11:16 86 05/29/17 10:14 92 05/29/17 09:20 82 I/O 05/29/17 05/29/17 05/29/17 05/30/17 05/30/17 05/30/17 07:00 15:00 23:00 07:00 15:00 23:00 Intake Total 781.5 ml 260 ml 480 ml 720 ml Output Total 500 ml 600 ml 250 ml Balance 281.5 ml 260 ml -120 ml 470 ml Intake Oral 720 ml 480 ml 720 ml IV Total 61.5 ml 260 ml Output Urine Total 500 ml 600 ml 250 ml # Bowel Movements 2 1 (Anya Hanocck MD R1) Result Diagram: 05/30/17 0358 05/30/17 0358 Objective Remarks GENERAL: Well-nourished, well-developed male lying in bed in no acute distress. at the bedside SKIN: Warm and dry. No rash. R inner groin: Catheterization puncture site within normal limits without any signs of infection or bleeding appreciated. Pressure dressing applied, CDI. HEENT: Atraumatic, normocephalic with extraocular motions intact. No rhinorrhea. No visible lymphadenopathy or jugulovenous distension appreciated. CARDIOVASCULAR: Regular rate and rhythm without obvious murmurs, gallops, or rubs. 2+ pulses in all four extremities. RESPIRATORY: Clear to auscultation bilaterally with no crackles, wheezes, or rhonchi. No increased work of breathing. GASTROINTESTINAL: Abdomen soft, non-tender, nondistended with positive bowel sounds. No masses appreciated. MUSCULOSKELETAL: No cyanosis or edema. No calf tenderness. NEURO/PSYCH: Afocal. Awake, alert, and oriented x3. Normal speech and judgement. (Anya Hancock MD R1) A/P Assessment and Plan Mr. Blunt is a 76 y/o male presenting to the ED with chest pain admitted for NSTEMI and is s/p cardiac catheterization with stent placement on . Discharge Planning Likely today pending clinical course (Anya Hancock MD R1) Attending Attestation Pt. examined and case discussed with resident physicians. I have read the above note and agree with the assessment and plan as discussed with me. I was involved in all medical decision making for this patient. Sánchez Fletcher MD (Sánchez Fletcher MD) Problem List: (1) NSTEMI (non-ST elevated myocardial infarction) ICD Codes: I21.4 - Non-ST elevation (NSTEMI) myocardial infarction Status: Acute Plan: -Cardiology consulted, appreciate recommendations -Cardiac catheterization 05/01/17 with 1 stent placed, uncomplicated procedure -Plavix with ASA -Supplemental O2. Daily aspirin. Protonix. -Morphine 2mg Q2 hrs PRN chest pain only. -Continue home Bystolic, Plavix, lisinopril, doses will provide mononitrate, aspirin, and Crestor -NTG PRN as no evidence of pump failure/hypoperfusion at this time. -Tele. Workup: -Previous ECHO completed in [place], normal per patient. Previous EKG on 08/08 showed normal sinus rhythm with right bundle branch block. -EKG showed normal sinus rhythm with a heart rate of [address] depression in leads V4-6. Right bundle solitario block. Inverted T waves in leads aVR, V1. -CXR showed no acute disease -Trop 0.18, 0.46, 1.69 (2) Contrast dye induced nephropathy ICD Codes: T50.8X1A - Poisoning by diagnostic agents, accidental (unintentional ), initial encounter; N14.1 - Nephropathy induced by other drugs, medicaments and biological substances Status: Acute Plan: BUN 37, Cr elevated at 3.01 today most likely due to contrast from cardiac cath procedure NS 118ml/shr Repeat BMP this afternoon Patient asymptomatic on exam BP in room 126/76 Hold cardiac medications for hypotension Continue to monitor (3) Hypotensive episode ICD Codes: I95.9 - Hypotension, unspecified Status: Acute Plan: See plan above. Patient asymptomatic exam. Hold cardiac medications Give fluids, NS 118ml/hr Encourage oral intacke (4) Diabetes mellitus with peripheral angiopathy ICD Codes: E11.51 - Type 2 diabetes mellitus with diabetic peripheral angiopathy without gangrene Status: Chronic Plan: Patient with reported history of type 2 diabetes. Currently on home metformin, tradjenta, and Basaglar insulin. -Hold home diabetes medication -Sliding-scale insulin per protocol -A1c 7.8% (5) COPD (chronic obstructive pulmonary disease) ICD Codes: J44.9 - Chronic obstructive pulmonary disease Status: Chronic Plan: Patient was reported COPD without current exacerbation -Continue home albuterol when necessary for shortness of breath -Continue Advair daily -DuoNeb's ordered as needed for shortness of breath -Incentive spirometry (6) Hypertension ICD Codes: I10 - Hypertension Status: Chronic Plan: Patient with chronic hypertension -Held lisinopril, triamterene/HCTZ for now due to hypotensive episodes -Clonidine 0.1 mg every 6 hours when necessary for blood pressure greater than 180/100 (7) Constipation ICD Codes: K59.00 - Constipation Status: Chronic Plan: Patient with history of chronic constipation -Continue home Metamucil -Constipation protocol in place (8) GERD (gastroesophageal reflux disease) ICD Codes: K21.9 - Gastroesophageal reflux disease Status: Chronic Plan: Patient with history of gastroesophageal reflux disease -Continue home Protonix twice a day (9) Nutrition, metabolism, and development symptoms ICD Codes: R63.8 - Other symptoms and signs concerning food and fluid intake Status: Acute Plan: -Fluids: NS 118 mls/hr -Diet: Heart Healthy diet -Electrolytes: monitor and replace as needed -Prophylaxis: Zofran when necessary for nausea/vomiting, clonidine when necessary for elevated blood pressure, constipation protocol and place, DuoNeb when necessary for shortness of breath (10) No contraindication to deep vein thrombosis (DVT) prophylaxis ICD Codes: Z78.9 - Other specified health status Status: Acute Plan: -Heparin drip per protocol for ACS -SCDs (Anya Hancock MD R1) Problem Qualifiers (1) COPD (chronic obstructive pulmonary disease): Qualified Codes: J41.0 - Simple chronic bronchitis (2) Hypertension: Qualified Codes: I10 - Essential (primary) hypertension (3) Constipation: Qualified Codes: K59.00 - Constipation, unspecified (4) GERD (gastroesophageal reflux disease): Qualified Codes: K21.9 - Gastro-esophageal reflux disease without esophagitis Anya Hancock MD R1 May 30, 2017 08:38 Sánchez Fletcher MD May 30, 2017 20:56
[2017-05-30] MEDS: DOCUSATE SODIUM 50 MG/SENNA 8.6 MG TAB PO SCH (09:00)
[2017-05-30] MEDS ORDERED: ATORVASTATIN 10 MG TAB PO SCH (09:00)
[2017-05-30] MEDS ORDERED: VOLT1GEL16 TOPICAL (09:14)
[2017-05-30] MEDS: NEBIVOLOL 10 MG TAB PO SCH (09:34)
[2017-05-30] MEDS: TRIAMTERENE/HCTZ 37.5 MG/25 MG TAB PO SCH (09:34)
[2017-05-30] MEDS: CLOPIDOGREL 75 MG TAB PO SCH (09:34)
[2017-05-30] MEDS: SODIUM CHLORIDE 0.9% FLUSH 10 ML FLUSH IV FLUSH SCH (09:34)
[2017-05-30] MEDS: ASPIRIN 81 MG CHEW TAB CHEW SCH (09:34)
[2017-05-30] MEDS: LISINOPRIL 20 MG TAB PO SCH (09:34)
[2017-05-30] MEDS: PANTOPRAZOLE SOD 40 MG DELAYED RELEASE TAB PO SCH (09:35)
[2017-05-30] MEDS: CHOLECALCIFEROL (VIT D3) 1000 UNIT TAB PO SCH (09:35)
[2017-05-30] MEDS: BUDESONIDE-FORMOTEROL 160/4.5 MCG INHALER INH SCH (09:36)
--- NOTE | 2017-05-30 11:22 | HHI.FF ---
Face to Face Verification Diagnosis: (1) NSTEMI (non-ST elevated myocardial infarction) (2) COPD (chronic obstructive pulmonary disease) Physical Therapy Order: Evaluate and Treat, Improve ambulation, Strength and gait training I have seen patient Shai Blunt on 05/30/17. My clinical findings support the need for the requested home health care services because: Ltd mobility - disease progression Patient has SOB Deconditioned w/ increased weakness High risk of falls I certify that my clinical findings support that this patient is homebound because: Post-op weakness Unsteady gait/balance Poor cardiac reserve Toan Black MD R2 May 30, 2017 11:22
[2017-05-30] MEDS ORDERED: SODIUM CHLORID 0.9% 500 ML INJ 500 ML IV ONE (11:30)
--- NOTE | 2017-05-30 16:07 | PD.CARD.PN ---
Subjective Subjective Remarks No angina or SOB, feels fine Objective Medications Current Medications Medications (Trade) Dose Ordered Sig/Stacy Route Start Time Stop Time Status Last Admin (NS Flush) 2 ml UNSCH PRN IV FLUSH 05/28/17 11:15 (NS Flush) 2 ml BID IV FLUSH 05/28/17 11:15 05/30/17 09:34 (Narcan Inj) 0.4 mg UNSCH PRN IV PUSH 05/28/17 11:15 (Zofran Inj) 4 mg Q6H PRN IVP 05/28/17 13:00 05/29/17 08:38 (Tylenol) 650 mg Q6H PRN PO 05/28/17 13:00 05/29/17 07:08 (Ruby-Colace) 1 tab BID PO 05/28/17 13:00 05/28/17 21:48 (Milk Of Magnesia Liq) 30 ml Q12H PRN PO 05/28/17 13:00 (Senokot) 17.2 mg Q12H PRN PO 05/28/17 13:00 (Dulcolax Supp) 10 mg DAILY PRN RECTAL 05/28/17 13:00 (Lactulose Liq) 30 ml DAILY PRN PO 05/28/17 13:00 (Aspirin Chew) 81 mg DAILY CHEW 05/29/17 09:00 05/30/17 09:34 (Vitamin D3) 1,000 units DAILY PO 05/29/17 09:00 05/30/17 09:35 (Plavix) 75 mg DAILY PO 05/29/17 09:00 05/30/17 09:34 (Imdur) 60 mg DAILY@0700 PO 05/29/17 07:00 05/29/17 06:14 (Prinivil) 20 mg BID PO 05/28/17 21:00 05/30/17 09:34 (Protonix) 40 mg BID PO 05/28/17 21:00 05/30/17 09:35 (Maxzide 37.5-25 Mg) 1 tab DAILY PO 05/29/17 09:00 05/30/17 09:34 (Symbicort 160-4.5 Mcg Inh) 2 puff BID INH 05/28/17 21:00 05/30/17 09:36 (Bystolic) 20 mg DAILY PO 05/29/17 09:00 05/30/17 09:34 (Lipitor) 10 mg EVERY OTHER DAY PO 05/30/17 09:00 05/30/17 09:34 (D50w (Vial) Inj) 50 ml UNSCH PRN IV PUSH 05/28/17 13:00 (Glucagon Inj) 1 mg UNSCH PRN OTHER 05/28/17 13:00 (NovoLOG SUPPLEMENTAL SCALE) 1 ACHS SLIDING SCALE SQ 05/28/17 17:00 05/30/17 12:00 (Catapres) 0.1 mg Q6H PRN PO 05/28/17 13:00 (Duoneb Neb) 1 ampule Q6HR NEB PRN NEB 05/28/17 13:00 (Nitrostat Sl) 0.4 mg Q5M PRN SL 05/28/17 13:30 (Morphine Inj) 2 mg Q5M PRN IV PUSH 05/28/17 13:30 (Restoril) 15 mg HS PRN PO 05/28/17 18:45 (Afrin 0.05% Jaswinder Linwood) 1 spray Q12HR PRN NASAL 05/28/17 21:45 05/28/17 23:04 Heparin Sodium/ Dextrose 250 ml @ 10 mls/hr TITRATE PRN IV 05/28/17 23:45 05/29/17 00:06 (Fritch 5-325 Mg) 1 tab Q6H PRN PO 05/29/17 10:30 05/29/17 19:56 (Fritch 5-325 Mg) 2 tab Q6H PRN PO 05/29/17 10:30 Vital Signs / I&O Vital Signs Date Time Temp Pulse Resp B/P (MAP) Pulse Ox O2 Delivery O2 Flow Rate FiO2 05/30/17 15:32 97.7 81 16 139/67 (91) 99 05/30/17 14:00 77 05/30/17 13:00 83 05/30/17 12:00 78 05/30/17 11:47 98.1 78 16 108/53 (71) 99 05/30/17 11:00 98 05/30/17 10:00 90 05/30/17 09:00 78 05/30/17 08:00 84 05/30/17 07:47 98.8 84 16 123/58 (79) 93 05/30/17 07:00 91 05/30/17 06:03 72 05/30/17 05:05 81 05/30/17 04:03 90 05/30/17 03:22 99.7 89 17 83/53 (63) 92 05/30/17 03:00 99 05/30/17 02:00 91 05/30/17 01:00 90 05/30/17 00:03 89 05/29/17 23:14 99.7 89 17 91/49 (63) 92 05/29/17 23:00 82 05/29/17 22:00 90 05/29/17 21:42 17 05/29/17 21:00 89 05/29/17 20:00 91 05/29/17 19:00 98.2 98 17 85/52 (63) 95 05/29/17 19:00 88 05/29/17 18:05 91 05/29/17 17:02 74 I/O 05/29/17 05/29/17 05/29/17 05/30/17 05/30/17 05/30/17 07:00 15:00 23:00 07:00 15:00 23:00 Intake Total 781.5 ml 260 ml 480 ml 720 ml Output Total 500 ml 600 ml 250 ml Balance 281.5 ml 260 ml -120 ml 470 ml Intake Oral 720 ml 480 ml 720 ml IV Total 61.5 ml 260 ml Output Urine Total 500 ml 600 ml 250 ml # Bowel Movements 2 1 Physical Exam GENERAL: In NAD. SKIN: Warm and dry. HEAD: Normocephalic. EYES: No scleral icterus. No injection or drainage. NECK: Supple, trachea midline. No JVD or lymphadenopathy. CARDIOVASCULAR: Regular rate and rhythm without murmurs, gallops, or rubs. RESPIRATORY: Breath sounds equal bilaterally. No accessory muscle use. GASTROINTESTINAL: Abdomen soft, non-tender, nondistended. MUSCULOSKELETAL: No cyanosis, or edema. Groin stable Laboratory Laboratory Tests Test 05/30/17 03:58 White Blood Count 12.0 TH/MM3 Red Blood Count 4.01 MIL/MM3 Hemoglobin 12.3 GM/DL Hematocrit 36.1 % Mean Corpuscular Volume 90.1 FL Mean Corpuscular Hemoglobin 30.6 PG Mean Corpuscular Hemoglobin Concent 34.0 % Red Cell Distribution Width 14.1 % Platelet Count 208 TH/MM3 Mean Platelet Volume 7.2 FL Neutrophils (%) (Auto) 72.1 % Lymphocytes (%) (Auto) 17.0 % Monocytes (%) (Auto) 8.8 % Eosinophils (%) (Auto) 1.4 % Basophils (%) (Auto) 0.7 % Neutrophils # (Auto) 8.6 TH/MM3 Lymphocytes # (Auto) 2.0 TH/MM3 Monocytes # (Auto) 1.0 TH/MM3 Eosinophils # (Auto) 0.2 TH/MM3 Basophils # (Auto) 0.1 TH/MM3 CBC Comment DIFF FINAL Differential Comment Blood Urea Nitrogen 37 MG/DL Creatinine 3.01 MG/DL Random Glucose 172 MG/DL Calcium Level 7.9 MG/DL Sodium Level 138 MEQ/L Potassium Level 4.1 MEQ/L Chloride Level 105 MEQ/L Carbon Dioxide Level 24.8 MEQ/L Anion Gap 8 MEQ/L Estimat Glomerular Filtration Rate 20 ML/MIN Assessment and Plan Problem List: (1) NSTEMI (non-ST elevated myocardial infarction) ICD Codes: I21.4 - Non-ST elevation (NSTEMI) myocardial infarction Status: Acute (2) CAD (coronary artery disease) ICD Codes: I25.10 - Atherosclerotic heart disease of [place] coronary artery without angina pectoris (3) Hx of CABG ICD Codes: Z95.1 - History of coronary artery bypass surgery Status: Acute (4) Diabetes mellitus, type 2 ICD Codes: E11.9 - Type 2 diabetes mellitus Status: Acute (5) Hypertension ICD Codes: I10 - Hypertension Status: Chronic Assessment and Plan No angina or CHF. Remains stable. Successful SVT-OM stenting. Groin stable. Continue Plavix, baby ASA, nebivolol, and rosuvastatin. DC home. Will schedule outpt f/u in our office. D/w pt and . Problem Qualifiers (1) Hypertension: Qualified Codes: I10 - Essential (primary) hypertension Allison Chavarria MD May 30, 2017 16:07
--- NOTE | 2017-05-30 16:31 | ECHRPT ---
Indication: Heart failure, unspecified CONCLUSIONS Technically very difficult study making assessment of left ventricular function suboptimal. Grossly left ventricular function appears low normal. Regional wall abnormalities cannot be excluded. Left vent ricular size is normal. The aortic valve is not well visualized. There is mild tricuspid regurgitation. The estimated pulmonary arterial pressure is 36 mmHg. BP: 90 / 51 HR: 92 Rhythm: Sinus MEASUREMENTS (Male / Female) Normal Values Technical Quality:Fair 2D ECHO LV Diastolic Diameter PLAX 4.7 cm 4.2 - 5.9 / 3.9 - 5.3 cm LV Systolic Diameter PLAX 3.9 cm IVS Diastolic Thickness 1.2 cm 0.6 - 1.0 / 0.6 - 0.9 cm LVPW Diastolic Thickness 1.2 cm 0.6 - 1.0 / 0.6 - 0.9 cm LV Relative Wall Thickness 0.5 LVOT Diameter 2.1 cm M-MODE Aortic Root Diameter MM 3.6 cm LA Systolic Diameter MM 3.6 cm LA Ao Ratio MM 1.0 AV Cusp Separation MM 2.0 cm DOPPLER AV Peak Velocity 105.0 cm/s AV Peak Gradient 4.4 mmHg LVOT Peak Velocity 69.1 cm/s LVOT Peak Gradient 1.9 mmHg AV Area Cont Eq pk 2.3 cm Mitral E Point Velocity 94.3 cm/s Mitral A Point Velocity 111.0 cm/s Mitral E to A Ratio 0.8 LV E' Septal Velocity 7.6 cm/s Mitral E to LV E' Septal Ratio 12.4 TR Peak Velocity 263.0 cm/s TR Peak Gradient 27.7 mmHg Right Atrial Pressure 10.0 mmHg Pulmonary Artery Systolic Pressu 37.7 mmHg Right Ventricular Systolic Press 37.7 mmHg PV Peak Velocity 102.0 cm/s PV Peak Gradient 4.2 mmHg FINDINGS LEFT VENTRICLE Technically very difficult study making assessment of left ventricular function suboptimal. Grossly left ventricular function appears low normal. Regional wall abnormalities cannot be excluded. Left vent ricular size is [place]. RIGHT VENTRICLE Normal right ventricular size and systolic function. LEFT ATRIUM The left atrial size is normal. RIGHT ATRIUM The right atrial size is normal. ATRIAL SEPTUM Normal atrial septal thickness without atrial level shunting by limited color doppler interrogation. AORTA The aortic root and proximal ascending aorta are normal in size on limited imaging. MITRAL VALVE Structurally normal mitral valve. No mitral valve stenosis or regurgitation. AORTIC VALVE The aortic valve is not well visualized. TRICUSPID VALVE There is mild tricuspid regurgitation. The estimated pulmonary arterial pressure is 36 mmHg. PULMONARY VALVE No pulmonary valve regurgitation or stenosis. VESSELS The inferior vena cava is normal in size. PERICARDIUM No pericardial effusion. Bautista Graham MD (Electronically Signed) Final Date:30 May 2017 16:30
[2017-05-30 16:55] LABS: BICARBONATE 25.7 MEQ/L (21.0-32.0); CALCIUM 7.8 MG/DL (8.5-10.1); CREATININE 2.74 MG/DL (0.60-1.30)
--- NOTE | 2017-05-31 07:16 | HHI.DS ---
Discharge Summary Admission Date May 28, 2017 at 11:08 Discharge Date: May 30, 2017 Admitting Diagnosis NSTEMI (1) NSTEMI (non-ST elevated myocardial infarction) Diagnosis: Principal Plan: -Cardiology consulted, appreciate recommendations -Cardiac catheterization 05/01/17 with 1 stent placed, uncomplicated procedure -Plavix with ASA -Supplemental O2. Daily aspirin. Protonix. -Morphine 2mg Q2 hrs PRN chest pain only. -Continue home Bystolic, Plavix, lisinopril, doses will provide mononitrate, aspirin, and Crestor -NTG PRN as no evidence of pump failure/hypoperfusion at this time. -Tele. Workup: -Previous ECHO completed in [place], normal per patient. Previous EKG on 08/08 showed normal sinus rhythm with right bundle branch block. -EKG showed normal sinus rhythm with a heart rate of [address] depression in leads V4-6. Right bundle solitario block. Inverted T waves in leads aVR, V1. -CXR showed no acute disease -Trop 0.18, 0.46, 1.69 ICD Codes: I21.4 - Non-ST elevation (NSTEMI) myocardial infarction Status: Acute (2) Contrast dye induced nephropathy Diagnosis: Principal Plan: BUN 37, Cr elevated at 3.01 today most likely due to contrast from cardiac cath procedure NS 118ml/shr Repeat BMP this afternoon Patient asymptomatic on exam BP in room 126/76 Hold cardiac medications for hypotension Continue to monitor ICD Codes: T50.8X1A - Poisoning by diagnostic agents, accidental (unintentional ), initial encounter; N14.1 - Nephropathy induced by other drugs, medicaments and biological substances Status: Acute (3) Hypotensive episode Diagnosis: Principal Plan: See plan above. Patient asymptomatic exam. Hold cardiac medications Give fluids, NS 118ml/hr Encourage oral intacke ICD Codes: I95.9 - Hypotension, unspecified Status: Acute (4) Diabetes mellitus with peripheral angiopathy Diagnosis: Secondary Plan: Patient with reported history of type 2 diabetes. Currently on home metformin, tradjenta, and Basaglar insulin. -Hold home diabetes medication -Sliding-scale insulin per protocol -A1c 7.8% ICD Codes: E11.51 - Type 2 diabetes mellitus with diabetic peripheral angiopathy without gangrene Status: Chronic (5) COPD (chronic obstructive pulmonary disease) Diagnosis: Secondary Plan: Patient was reported COPD without current exacerbation -Continue home albuterol when necessary for shortness of breath -Continue Advair daily -DuoNeb's ordered as needed for shortness of breath -Incentive spirometry ICD Codes: J44.9 - Chronic obstructive pulmonary disease Status: Chronic (6) Hypertension Diagnosis: Secondary Plan: Patient with chronic hypertension -Held lisinopril, triamterene/HCTZ for now due to hypotensive episodes -Clonidine 0.1 mg every 6 hours when necessary for blood pressure greater than 180/100 ICD Codes: I10 - Hypertension Status: Chronic (7) Constipation Diagnosis: Secondary Plan: Patient with history of chronic constipation -Continue home Metamucil -Constipation protocol in place ICD Codes: K59.00 - Constipation Status: Chronic (8) GERD (gastroesophageal reflux disease) Diagnosis: Secondary Plan: Patient with history of gastroesophageal reflux disease -Continue home Protonix twice a day ICD Codes: K21.9 - Gastroesophageal reflux disease Status: Chronic (9) Nutrition, metabolism, and development symptoms Diagnosis: Principal Plan: -Fluids: NS 118 mls/hr -Diet: Heart Healthy diet -Electrolytes: monitor and replace as needed -Prophylaxis: Zofran when necessary for nausea/vomiting, clonidine when necessary for elevated blood pressure, constipation protocol and place, DuoNeb when necessary for shortness of breath ICD Codes: R63.8 - Other symptoms and signs concerning food and fluid intake Status: Acute (10) No contraindication to deep vein thrombosis (DVT) prophylaxis Diagnosis: Principal Plan: -Heparin drip per protocol for ACS -SCDs ICD Codes: Z78.9 - Other specified health status Status: Acute Brief History 76 yo M with a past medical history of CAD s/p CABG presents to the ED with 2 days of substernal chest pressure. He had chest pressure intermittently through the day yesterday and woke up this morning with continued chest pressure. This discomfort was associated with some shortness of breath and occasional radiation of pressure to his jaw. He denies nausea/vomiting, denies diaphoresis, denies palpitations, denies syncope or near syncope. He is managed by a Manager [facility] in [place] which he last saw in 12/2016 without any acute changes in his medical plan. He had heart catheterization in 2017 without further intervention per his report. He has had 4 vessel CABG in 2010. Currently he states his symptoms have resolved and is without complaints. Of note he was diagnosed with flu and taken two doses of Tamiflu before self discontinuing the medication due to "feeling bad." He reports his flu symptoms had resolved prior to this episode. CBC/BMP: 05/30/17 0358 05/30/17 1623 Significant Findings Laboratory Tests Test 05/28/17 09:40 05/28/17 21:53 05/29/17 05:05 05/29/17 11:38 White Blood Count 12.0 TH/MM3 (4.0-11.0) Blood Urea Nitrogen 21 MG/DL (7-18) 22 MG/DL (7-18) Random Glucose 186 MG/DL (74-106) 162 MG/DL (74-106) Aspartate Amino Transf (AST/SGOT) 12 U/L (15-37) Estimat Glomerular Filtration Rate 54 ML/MIN (>89) 60 ML/MIN (>89) Troponin I 0.18 NG/ML (0.02-0.05) 0.46 NG/ML (0.02-0.05) 1.69 NG/ML (0.02-0.05) Activated Partial Thromboplast Time 46.3 SEC (24.3-30.1) 44.0 SEC (24.3-30.1) Red Blood Count 4.40 MIL/MM3 (4.50-5.90) Monocytes (%) (Auto) 8.1 % (0.0-8.0) Calcium Level 8.2 MG/DL (8.5-10.1) Hemoglobin A1c 7.8 % (4.3-6.0) Creatine Kinase MB 6.7 NG/ML (0.5-3.6) LDL Cholesterol 102 MG/DL (0-99) HDL Cholesterol 34.3 MG/DL (40.0-60.0) Test 05/30/17 03:58 05/30/17 16:23 White Blood Count 12.0 TH/MM3 (4.0-11.0) Red Blood Count 4.01 MIL/MM3 (4.50-5.90) Hemoglobin 12.3 GM/DL (13.0-17.0) Hematocrit 36.1 % (39.0-51.0) Neutrophils (%) (Auto) 72.1 % (16.0-70.0) Monocytes (%) (Auto) 8.8 % (0.0-8.0) Neutrophils # (Auto) 8.6 TH/MM3 (1.8-7.7) Monocytes # (Auto) 1.0 TH/MM3 (0-0.9) Blood Urea Nitrogen 37 MG/DL (7-18) 41 MG/DL (7-18) Creatinine 3.01 MG/DL (0.60-1.30) 2.74 MG/DL (0.60-1.30) Random Glucose 172 MG/DL (74-106) 156 MG/DL (74-106) Calcium Level 7.9 MG/DL (8.5-10.1) 7.8 MG/DL (8.5-10.1) Estimat Glomerular Filtration Rate 20 ML/MIN (>89) 23 ML/MIN (>89) Sodium Level 135 MEQ/L (136-145) PE at Discharge GENERAL: Well-nourished, well-developed male lying in bed in no acute distress. at the bedside SKIN: Warm and dry. No rash. R inner groin: Catheterization puncture site within normal limits without any signs of infection or bleeding appreciated. Pressure dressing applied, CDI. HEENT: Atraumatic, normocephalic with extraocular motions intact. No rhinorrhea. No visible lymphadenopathy or jugulovenous distension appreciated. CARDIOVASCULAR: Regular rate and rhythm without obvious murmurs, gallops, or rubs. 2+ pulses in all four extremities. RESPIRATORY: Clear to auscultation bilaterally with no crackles, wheezes, or rhonchi. No increased work of breathing. GASTROINTESTINAL: Abdomen soft, non-tender, nondistended with positive bowel sounds. No masses appreciated. MUSCULOSKELETAL: No cyanosis or edema. No calf tenderness. NEURO/PSYCH: Afocal. Awake, alert, and oriented x3. Normal speech and judgement. Hospital Course Patient was admitted to the hospital for ACS rule out. With increasing troponins and ST depression on EKG, cardiology was consulted. Cardiac catheterization was completed with 1 stent placed. Patient tolerated the procedure well. Postprocedure patient had one episode of hypotension that resolved with hydration. Patient was then found to have contrast-induced nephropathy and was given a 500 mL bolus of normal saline. Repeat BMP showed improving creatinine. Patient was discharged on hospital day 3 fractions to follow-up with his PCP and cardiology within 1 week. He was given orders for a repeat BMP within 3-5 days. He was instructed to increase his oral fluid intake to assist with his contrast-induced nephropathy. All medications were continued. Patient was also given home health [id number] for continued physical therapy. Pt Condition on Discharge: Stable Discharge Disposition: Discharge Home Discharge Instructions DIET: Follow Instructions for: Heart Healthy Diet, Diabetic Diet Activities you can perform: Regular-No Restrictions Other Activity Instructions: Per cardiology recommendations discussed with patient Follow up Referrals: Cardiology - 1 Week PCP Follow-up - 1 Week with Sánchez Fletcher MD New Orders: BASIC METABOLIC PROF - 3-5 Days Continued Medications: Aspirin (Aspirin Low Dose) 81 Mg Chew 81 MG CHEW DAILY, TAB 0 Refills Cholecalciferol (Vitamin D3) 1,000 Unit Tab 1000 UNITS PO DAILY for Nutritional Supplement, #1 BOTTLE 0 Refills Clopidogrel (Plavix) 75 Mg Tab 75 MG PO DAILY for Blood Clot Prevention, #30 TAB 0 Refills Coenzyme Q10 (Ubidecarenone) (Co Q 10) 100 Mg Cap 200 MG PO DAILY Diclofenac Sodium (Voltaren) 1 % Gel..gram. 1 APPLIC TOPICAL Q6HR PRN for PAIN SCALE 1 TO 10, #30 GM 3 Refills Fluticasone-Salmeterol Inh (Advair Diskus Inh) 250-50 Mcg/Blist Aer 1 PUFF INH BID, #1 INHALER 0 Refills Rinse mouth after use. Insulin Glargine (Basaglar Kwikpen) 100 Unit/Ml Pen 14 UNITS SQ DAILY for Blood Sugar Management, #5 PEN 0 Refills Isosorbide Mononitrate ER (Isosorbide Mononitrate ER) 60 Mg Tab 60 MG PO DAILY for Prevent Chest Pain, #30 TAB 0 Refills Linagliptin (Tradjenta) 5 Mg Tab 5 MG PO DAILY for Blood Sugar Management, #30 TAB 0 Refills Lisinopril (Lisinopril) 20 Mg Tab 20 MG PO BID, #30 TAB 0 Refills Metformin (Metformin) 500 Mg Tab 500 MG PO BIDPC for Blood Sugar Management, #60 TAB 0 Refills Nebivolol (Bystolic) 20 Mg Tab 20 MG PO DAILY for Blood Pressure Management, #30 TAB 0 Refills Oxymetazoline Nasal (Afrin Nasal [place]) 0.05% [place] 2-3 SPRAY EACH NARE Q12H PRN for NASAL CONGESTION, #1 BOTTLE 0 Refills Pantoprazole (Protonix) 40 Mg Tab 40 MG PO BID for Reflux, #30 TAB 0 Refills Psyllium (Metamucil) 520 Mg Cap 1 CAP PO DAILY Rosuvastatin (Crestor) 5 Mg Tab 5 MG PO EVERY OTHER DAY for Cholesterol Management, #30 TAB 0 Refills Triamterene-Hydrochlorothiazide (Triamterene-Hydrochlorothiazide) 37.5-25 Mg Tab 1 TAB PO DAILY, #30 TAB 0 Refills [BD Arnold Track] () 1 UNIT TD, #100 1 Refill Lancets - BD Arnold Track Dx: Diabetes Mellitus type 2 - 250.00 [BD Arnold Track] () 100 U TD BID, #100 UNIT 1 Refill BD Arnold Track Test Strips Dx: Diabetes Mellitus type 2 - 250.00 [BD Arnold Trac] () 1 UNIT TD BID, #1 UNIT Arnold Track Glucometer Dx: Diabetes Mellitus type 2 - 250.00 Toan Black MD R2 May 31, 2017 07:16
== END 2017-05-30 18:50 | disposition home or self-care (01) | DRG 247 ==
LOC: NEPC 09:20 → NEDA 11:08 → HCPC 13:47
PROVIDERS: ADMIT Family Medicine; ATTEND Family Medicine
PROC: 4A023N8 Measurement of Cardiac Sampling and Pressure, Bilateral, Percutaneous Approach (ICD-10-PCS; 2017-05-28)
PROC: B2111ZZ Fluoroscopy of Multiple Coronary Arteries using Low Osmolar Contrast (ICD-10-PCS; 2017-05-28)
PROC: B2131ZZ Fluoroscopy of Multiple Coronary Artery Bypass Grafts using Low Osmolar Contrast (ICD-10-PCS; 2017-05-28)
PROC: B2151ZZ Fluoroscopy of Left Heart using Low Osmolar Contrast (ICD-10-PCS; 2017-05-28)
PROC: B2181ZZ Fluoroscopy of Left Internal Mammary Bypass Graft using Low Osmolar Contrast (ICD-10-PCS; 2017-05-28)
PROC: 027034Z Dilation of Coronary Artery, One Artery with Drug-eluting Intraluminal Device, Percutaneous Approach (ICD-10-PCS; principal; 2017-05-28 17:30)
DX: I21.4 Non-ST elevation (NSTEMI) myocardial infarction (principal); I95.9 Hypotension, unspecified; E11.22 Type 2 diabetes mellitus with diabetic chronic kidney disease; I13.0 Hypertensive heart and chronic kidney disease with heart failure and stage 1 through stage 4 chronic kidney disease, or unspecified chronic kidney disease; E11.51 Type 2 diabetes mellitus with diabetic peripheral angiopathy without gangrene; I50.9 Heart failure, unspecified; I25.810 Atherosclerosis of coronary artery bypass graft(s) without angina pectoris; I45.2 Bifascicular block; N14.1 Nephropathy induced by other drugs, medicaments and biological substances; T50.8X5A Adverse effect of diagnostic agents, initial encounter; J44.9 Chronic obstructive pulmonary disease, unspecified; E78.5 Hyperlipidemia, unspecified; I25.10 Atherosclerotic heart disease of native coronary artery without angina pectoris; N18.2 Chronic kidney disease, stage 2 (mild); K21.9 Gastro-esophageal reflux disease without esophagitis; I25.2 Old myocardial infarction; J32.9 Chronic sinusitis, unspecified; J30.9 Allergic rhinitis, unspecified; K59.09 Other constipation; I25.5 Ischemic cardiomyopathy; R19.7 Diarrhea, unspecified; R11.2 Nausea with vomiting, unspecified; M19.90 Unspecified osteoarthritis, unspecified site; Z72.0 Tobacco use; Z79.84 Long term (current) use of oral hypoglycemic drugs; Z95.1 Presence of aortocoronary bypass graft; Z95.820 Peripheral vascular angioplasty status with implants and grafts
CPT/HCPCS: 71045; 80048; 80053; 80061; 82550; 82552; 82948; 83036; 83880; 84484; 85002; 85025; 85610; 85730; 92928; 93005; 93306; 93459; 94150; 96374; 99152; C1769; C1874; C1887; C1893; J0461; J1644; J1815; J2250; J2270; J2405; J3010; J7030; J7040; J7050; Q9967

== ENCOUNTER → 2017-06-19 | Outpatient (CLI) | payer MEDICARE ==
[~2017-06-19] MED LIST changes: +VOLT1GEL16 TOPICAL
[2017-06-19 14:03] LABS: BICARBONATE 28.4 MEQ/L (21.0-32.0); CALCIUM 9.1 MG/DL (8.5-10.1); CREATININE 1.29 MG/DL (0.60-1.30)
== END ==
LOC: CLAB 12:58
PROVIDERS: ATTEND Internal Medicine Interventional Cardiology
DX: N28.9 Disorder of kidney and ureter, unspecified (principal)
CPT/HCPCS: 36415; 80048